=== PATIENT | female | born 1940 | race Caucasian/White ===

== ENCOUNTER 2018-02-21 14:54 | Emergency (ER) | payer MEDICARE, SELFPAY ==
[2018-02-21 14:55] VITALS: BP 193/91; PULSE 60; RESP 16; TEMP 36.2; O2SAT 96; BMI 32.8
--- NOTE | 2018-02-21 15:14 | ED.DCSUM_ITS ---
- ER Visit Summary Date of Service: 02/21/18 Chief Complaint: Fall, rib pain History of Present Illness: The patient is a 77 F with left-sided rib pain. The patient was in her bathroom on Tuesday. She states she is getting up off the toilet. She stepped and lost her balance. She fell between the toilet and the sink. She struck her left ribs. She did not hit her head. She denies loss of consciousness. She states that she has been in her normal state of health since. She has had some pain in her left side with taking a deep breath. She does have pain reaching above her head. She does take oxycodone 1 tablet daily. She states has not really changed her pain. She denies being short of breath. She denies being lightheaded or dizzy. The patient does have some chronic gait dysfunction and walks with a cane. Physical Examination: Vital signs reviewed General: Well-nourished, well-developed Head: Normocephalic, atraumatic Eyes: Pupils equal and reactive, extraocular muscles intact Neck, supple, no lymphadenopathy Heart: Regular rate and rhythm Respiratory: No distress, clear bilaterally, tenderness the left rib laterally at ribs 6 and 7. No step-off. No crepitus. Abdomen: Soft, nontender, nondistended, no peritoneal signs Back: Nontender Extremities: Nontender, no edema, no cords Skin: Normal color no rash Neuro: Alert and oriented, no focal or lateralizing deficits Test Results: [] Emergency Department Course and Treatment: The patient has no hypoxia. She is clear lungs bilaterally. I did obtain plain films. She does have nondisplaced fractures the seventh and eighth rib. There is no pneumothorax. On reevaluation she is resting comfortably. The patient already has analgesics at home. I am going to add lidocaine patches and an incentive spirometer. Family was counseled on concerning symptoms and reasons to return. The patient will be discharged home with strict return precautions. Treatment Plan: [] Disposition: Discharge Impression:. 1;. Closed left rib fractures This note was generated with [employer] software. It may contain incorrect words, spelling, and punctuation that were not noted in review of the chart prior to signing ED Disposition - Plan for ED Patient: Chief Complaint: Fall Instructions: ED Fx Rib Prescriptions: Lidocaine [Lidoderm Patch] 1 patch TOPICAL DAILY #10 patch Referrals: Anthony Cabrera [Primary Care Provider] -
--- NOTE | 2018-02-21 15:20 | RAD_ITS ---
STUDY: X-RAY - UNILATERAL RIBS ( LEFT ) WITH CHEST REASON FOR EXAM: Female, 77 years old. Posterior rib pain following a fall. TECHNIQUE - RIBS: 4 view(s) of the ribs. TECHNIQUE - CHEST: PA and lateral views of the chest. COMPARISON: None. FINDINGS - RIBS: Nondisplaced fracture of the left seventh and eighth ribs anterolaterally. FINDINGS - CHEST: Mild increased markings at the left lung base. Blunting of the left cardiac phrenic angle. There is borderline cardiomegaly. Normal mediastinum and uriel. Normal visualized pulmonary arteries. There is atherosclerotic calcification of the aortic arch with tortuosity. There are diffuse degenerative changes of the visualized thoracic spine. Normal visualized ribs, clavicles, and shoulders. There is no demonstrated abnormality of the visualized soft tissue structures of the upper abdomen. RAD/Ribs Uni Min 3V w/PA Chest IMPRESSION: RIBS: Nondisplaced fractures of the left seventh and eighth ribs anterolaterally. CHEST: Blunting of the left costophrenic angle with mild increased markings at the left lung base. Electronically Signed: Louie Topete MD at 16:02 EDT Tel [phone], Service support ,
[2018-02-21 16:38] VITALS: BP 152/82; PULSE 75; RESP 16; O2SAT 98
== END 2018-02-21 16:39 | disposition home or self-care (01) ==
PROVIDERS: Emergency Provider Emergency Medicine; Family Provider Internal Medicine; PCP Internal Medicine
DX: S22.32XA Fracture of one rib, left side, initial encounter for closed fracture (principal); W01.198A Fall on same level from slipping, tripping and stumbling with subsequent striking against other object, initial encounter; Y93.9 Activity, unspecified; Y92.002 Bathroom of unspecified non-institutional (private) residence as the place of occurrence of the external cause; Y99.9 Unspecified external cause status; E78.00 Pure hypercholesterolemia, unspecified; E11.9 Type 2 diabetes mellitus without complications; I10 Essential (primary) hypertension
CPT/HCPCS: 71101; 99282

== ENCOUNTER 2018-12-11 10:56 | Observation (INO) | payer MEDICARE, SELFPAY ==
[2018-12-11 10:58] VITALS: BP 175/62; PULSE 65; PULSE 66; RESP 18; RESP 20; TEMP 36.4; O2SAT 97; BMI 33.5
--- NOTE | 2018-12-11 11:16 | RAD_ITS ---
STUDY: X-RAY - RIGHT HUMERUS REASON FOR EXAM: Female, 78 years old. Pain following a fall. TECHNIQUE: 4 view(s) of the humerus. COMPARISON: None. FINDINGS: Nondisplaced condylar fracture of the surgical neck of the humerus with extension to the greater tuberosity. Soft tissue swelling. RAD/Humerus min 2 Views IMPRESSION: Nondisplaced comminuted fracture of the surgical neck of the humerus with extension into the greater tuberosity. Electronically Signed: Louie Topete MD at 13:47 EST , Service support ,
--- NOTE | 2018-12-11 11:16 | RAD_ITS ---
STUDY: X-RAY CHEST REASON FOR EXAM: Female, 78 years old. Right-sided pain following a fall. TECHNIQUE: Single AP portable view of the chest. COMPARISON: None. FINDINGS: Elevation of the right hemidiaphragm. Scattered calcified granulomas. There is no demonstrated pleural abnormality. Normal size heart. Normal mediastinum and uriel. Normal visualized pulmonary arteries. There is atherosclerotic calcification of the aortic arch with tortuosity. There are diffuse degenerative changes of the visualized thoracic spine. Nondisplaced, fracture of the surgical neck of the humerus with extension to the greater tuberosity. There is no demonstrated abnormality of the visualized soft tissue structures of the upper abdomen. RAD/Chest 1 View (Portable) IMPRESSION: Mild cardiomegaly. The lungs are clear. Comminuted nondisplaced fracture of the surgical neck of the proximal right humerus with extension to the greater tuberosity. Electronically Signed: Louie Topete MD at 13:51 EST , Service support ,
[2018-12-11] MEDS: Ondansetron 4 MG/2 ML Vial IV (12:49)
[2018-12-11] MEDS: fentaNYL 100 MCG/2 ML Ampul 25 MCG IV ×3 (12:49→17:27)
--- NOTE | 2018-12-11 14:28 | CM.ED ---
Social Work Note Referral from MD for resources. Face to face with the pt and her two daughters. Introduced self and role at [facility]. The pt reports that she lives with her one daughter and fell off the bed today. She does use a walker to ambulate, but with the recently diagnosed broken clavicle do not anticipate she will be able to ambulate with the walker. Family inquires if the pt will be able to get herself out of bed, get to the bathroom, bathe, etc. Inform that this travel writer nor the MD can made that assumption as we do not know how she moves at her baseline. Recommend that we have PT or OT evaluate how the pt is moving to see if she is able to return home or will need placement. Understanding expressed. Updated physician who is in agreement. Order placed for PT to come and evaluate and placed call with no answer. Will attempt to contact therapy via phone again. MELODIE Loepz, [place]
--- NOTE | 2018-12-11 14:33 | CM.ED ---
Social Work Note Call back from Jacinta with PT and explain situation. Someone from therapy to come down to ambulate pt and make recommendation on ability to return home. Jacqueline Levin, ADDING MACHINE OPERATOR, [place]
[2018-12-11 15:03] VITALS: BP 132/93; PULSE 67; RESP 18; O2SAT 96
--- NOTE | 2018-12-11 15:41 | CM.ED ---
Social Work Note Jacinta from PT not recommended pt go home d/t concerns with instability. Discussed with physician who will seek to have pt placed in observation while awaiting pre-cert for placement. Face to face with family who agrees they do not feel they can manager story her care at this time. They opt for placement at TCU. Recommend that they have an alternative option in the event that TCU cannot accept. Also discussed the pre-cert process and understanding expressed. Placed call to referral line and left pt's name for referral. Will await confirmation of bed and SW to continue to follow and assist with discharge planning. PLAN: SNF pending acceptance and pre-cert. Jacqueline Levin, INTERTYPE OPERATOR, [place]
[2018-12-11 17:07] LABS: Absolute Lymphocyte Count 0.81 X10^3/ul (0.83-4.51); Absolute Neutrophil Count 10.4 X10^3/uL (2.0-7.7); Basophil# 0.03 X10^3/uL; Basophil% 0.2 % (0-1); Eosinophil# 0.01 X10^3/uL; Eosinophils% 0.1 % (0-5); Hematocrit 35.8 % (37-47); Lymphocyte # 0.81 X10^3/ul (4.0); Lymphocyte % 6.7 % (19-41); Mean Corp Hgb Conc 30.7 g/gl (32-36); Mean Corpuscular Hgb 30.6 pg (27.0-32.0); Mean Corpuscular Volume 99.7 fL (81-99); Mean Platelet Vol. 12.8 fl (6.2-12.0); Monocyte# 0.86 X10^3/uL; Monocyte% 7.1 % (0-10); Neutrophil # 10.39 X10^3/uL (2.7-7.7); Neutrophil % 85.7 % (47-70); POSITIVE COUNT NO; POSITIVE DIFFERENTIAL NO; POSITIVE MORPHOLOGY NO; Platelet Count 171 K/mm3 (150-450); RBC Distribution Width CV 14.4 % (11.6-14.6); RBC Distribution Width SD 52.5 fl (35.1-43.9); Red Blood Count 3.59 M/mm3 (4.2-5.4); White Blood Count 12.1 K/mm3 (4.4-11.0)
[2018-12-11 17:14] LABS: Anion Gap 7 (5-15); BUN 32 mg/dL (7-18); BUN/Creat Ratio 19.4 RATIO (10-20); Calcium,Total 8.9 mg/dL (8.5-10.1); Chloride 105 mmol/L (98-107); Creatinine, Serum 1.65 mg/dL (0.55-1.02); EST Glomerular Filtration Rate 32 mL/min (>60); Est Glom Filt Rate - Afr Amer 38 mL/min (>60); Estimated Creatinine Clearance 23.48 ml/min; Glucose 334 mg/dL (74-106); Potassium 3.8 mmol/L (3.5-5.1); Sodium Level 141 mmol/L (136-145)
--- NOTE | 2018-12-11 17:25 | ED.VISSUMM ---
- ER Visit Summary Date of Service: 12/11/18 Chief Complaint: Fall History of Present Illness: The patient is a 78 F who fell from the edge of her bed to the floor. She complaining of pain to the right shoulder area. She denies loss of consciousness. Past history significant for dementia, high cholesterol, and kidney disease. She does live with 1 of her daughters. Physical Examination: Vital signs significant for blood pressure 175/62, otherwise unremarkable. Patient is immobilized from transport. Head neck examination reveals no sign of trauma. No C-spine tenderness. Heart is regular rate and rhythm. Lung sounds are clear. Chest wall is nontender. Abdomen is soft and nontender. Lower extremity examination is unremarkable. Left upper extreme examination is normal. Right upper extremity examination reveals tenderness around the right shoulder with no evidence of dislocation. She can wiggle fingers and has a strong distal pulse. There is no tenderness over the forearm or elbow. Test Results: Right humerus and chest x-ray are obtained. There is a comminuted nondisplaced fracture of the surgical neck of the proximal right humerus. Emergency Department Course and Treatment: Patient was given fentanyl for pain. Patient was placed in a sling and swath. Family had concerns about her being able to get up and around at home. I asked social work to evaluate her and she had physical therapy, ambulate the patient. Physical therapy does not feel the patient is safe to be discharged home. Referral has already been made to TCU, but patient will require overnight observation pending insurance approval. CBC and chemistry studies were obtained. White count is 12.1 with a hemoglobin 11.0. Creatinine is 1.65. I do not have prior value for comparison. Treatment Plan: [] Disposition: Admit Impression: 1. Mechanical fall 2. Right proximal humerus fracture This note was generated with [employer] dictation software. It may contain incorrect words, spelling, and punctuation that were not noted in review of the chart prior to signing ED Disposition - Plan for ED Patient: Referrals: Anthony Cabrera [Primary Care Provider] -
--- NOTE | 2018-12-11 18:19 | NURSING ---
DR ARIAS FOR DR MORILLO
--- NOTE | 2018-12-11 18:20 | NURSING ---
MED SURG OBS RT HUMBERUS FX PAINTSIL
--- NOTE | 2018-12-11 18:24 | PCM.HP.STD ---
Problem List (1) Right humeral fracture Status: Acute Qualifiers: Encounter type: initial encounter Fracture type: closed Fracture alignment: nondisplaced (2) Recurrent falls Status: Chronic (3) Dementia Status: Chronic Qualifiers: Dementia type: unspecified type Dementia behavioral disturbance: without behavioral disturbance Qualified Code(s): F03.90 - Unspecified dementia without behavioral disturbance (4) Hyperlipidemia Status: Chronic Qualifiers: Hyperlipidemia type: unspecified Qualified Code(s): E78.5 - Hyperlipidemia, unspecified (5) Type II diabetes mellitus Status: Chronic Qualifiers: Diabetes mellitus termination clerk insulin use: without termination clerk use Diabetes mellitus complication status: with unspecified complications Qualified Code(s): E11.8 - Type 2 diabetes mellitus with unspecified complications (6) Hypertension Status: Chronic Qualifiers: Hypertension type: essential hypertension Qualified Code(s): I10 - Essential (primary) hypertension History of Present Illness Date of Admission: 12/11/18 Chief Complaint: Fall, right upper extremity pain - 1 day The patient is a 78 year old F with past medical history of dementia, hypertension, hyperlipidemia, type II DM, who lives with her daughter at home. Her son and [id number] live next door. History was from the patient's daughter and [id number]. Patient had previously pressed her life alert button. The company called back by the life alert button was in the kitchen. Patient subsequently was found in the bedroom. Patient was found on the floor, unable to get up. She has history of recurrent falls according to the family. They are not able to tell and patient can remember if she had any symptoms prior to falling. Denied any recent illnesses or new medications. Denied any recent complaints. Vitals in the ED show temperature of 97.6F, heart rate was 65, blood pressure 175/62, respiratory rate of 18, SPO2 of 97% on room air. Patient is admitting blood work showed RBC count of 12.1, hemoglobin 11.0, platelet count 171, sodium 141, potassium 3.8, chloride 105, bicarbonate 29, BUN 32, creatinine 1.65, glucose 234. Chest x-ray showed mild cardiomegaly, comminuted nondisplaced fracture of the surgical neck of the proximal right humerus. X-ray of the humerus confirmed nondisplaced condylar fracture of the surgical neck with extension to the greater tuberosity. Past Medical History Past Medical History (Chronic Problems): Chronic Problems Recurrent falls (Chronic) Dementia (Chronic) Hyperlipidemia (Chronic) Type II diabetes mellitus (Chronic) Hypertension (Chronic) Allergies allopurinol Allergy (Verified 12/11/18 10:57) Rash tetanus toxoid, adsorbed Adverse Reaction (Verified 12/11/18 10:57) Nausea Home Medications: Ambulatory Orders Medication Instructions Recorded Amlodipine [Norvasc] 5 mg PO DAILY 02/21/18 Aspirin [Aspirin, Baby] 81 mg PO DAILY@0800 02/21/18 Bupropion HCl [Wellbutrin Sr] 150 mg PO BID 02/21/18 Colchicine 0.6 mg PO BID 02/21/18 Gabapentin [Neurontin] 300 mg PO DAILY 02/21/18 Metoprolol Tartrate [Lopressor] 100 mg PO BID 02/21/18 Sertraline HCl [Zoloft] 75 mg PO DAILY 02/21/18 glyBURIDE [Micronase] 10 mg PO BID 02/21/18 Atorvastatin Calcium [Lipitor] 40 mg PO QHS 12/11/18 Cholecalciferol (VIT D3) [Vitamin 1,000 unit PO DAILY 12/11/18 D] Donepezil HCl 5 mg PO DAILY 12/11/18 Ferrous Sulfate 325 mg PO DAILY 12/11/18 Hydrocodone/Acetaminophen 1 tab PO Q8H PRN PRN 12/11/18 [Hydrocodon-Acetaminophen 5-325] Linagliptin [Tradjenta] 5 mg PO DAILY 12/11/18 Memantine HCl [Memantine HCl ER] 28 mg PO DAILY 12/11/18 Multivitamin with Minerals 1 tab PO DAILY 12/11/18 [Multiple Vitamin] Omeprazole 40 mg PO DAILY 12/11/18 Pioglitazone [Actos] 30 mg PO DAILY 12/11/18 Rivastigmine 9.5mg Patch [Exelon 1 patch TOPICAL DAILY 12/11/18 9.5MG/24HR PATCH] Surgical History: total hip arthroplasty Psychiatric History: Depression ELECTRICAL LINE 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 ELECTRICAL LINE SPLICER history Lives: With Family Smoking Status: Never smoker Tobacco Use: Non-smoker Alcohol: None Drugs: None - *Family History Maternal History Items: No pertinent history Paternal History Items: No pertinent history Review of Systems Constitutional: Denies: Anorexia, Chills, Fever, Weakness, Weight Change Eyes: Denies: Blurred vision, Cataracts, Conjunctivae Inflammation, Pain, Vision Change HEENT: Denies: Difficulty Hearing, Difficulty Swallowing, Head Aches, Sinus Congestion, Sinus Drainage Cardiovascular: Denies: Chest Pain, Claudication, Chest Pressure, Orthopnea, Palpitations, Paroxysmal Noc. Dyspnea Respiratory: Denies: Cough, Shortness of Breath, Shortness of breath at rest, Sputum production Gastrointestinal: Denies: Abdominal Pain, Hematemesis, Hematochezia, Nausea, Vomiting Genitourinary: Denies: Dysuria Musculoskeletal: Reports: Joint Tenderness, Shoulder Pain - right. Denies: Joint Pain, Joint stiffness Skin: Denies: Rash, Wounds Neurological: Denies: Difficulty swallowing, Focal weakness, Numbness, Tingling Psychiatric: Denies: Anxiety, Depression, Homicidal Ideations, Suicidal Ideations Hematologic/ Lymphatic: Denies: Easy Bruising, Easy Bleeding VTE Information - Inpt Only VTE Present on Admission: No VTE Pharm Prophylaxis ordered?: Yes Patient Problems: Active and Suspected Problems Right humeral fracture (Acute) - Physical Exam General: Alert, Cooperative, No apparent distress, - - Oriented to person, place, but not time HEENT: Atraumatic, PERRLA, EOMI, Normocephalic Oral: Dry Mucosa Neck: Supple, No JVD, Negative Carotid Bruits Lungs: Clear to auscultation, Normal air movement Cardiovascular: Regular rate, Regular Rhythm, Normal S1, Normal S2, No murmurs Abdomen: Bowel Sounds Present, Soft, Non Tender, Non-Distended, No Hepato-splenomegaly Extremities: No edema Skin: No rashes, No breakdown Musculoskeletal: Tenderness - Over the right shoulder, right shoulder in a sling Lymphatic: No Cervical, Supraclavicular, or Inguinal Adenopathy Neurological: Cranial nerves II-XII grossly intact, Neuro grossly intact Psych/Mental Status: Normal Affect, Appropriate Vital Signs Temp Pulse Resp BP Pulse Ox 97.6 F L 67 18 132/93 H 96 12/11/18 10:58 12/11/18 15:03 12/11/18 15:03 12/11/18 15:03 12/11/18 15:03 Oxygen Delivery Method Room Air Weight: 88.451 kg Body Mass Index (BMI) 33.5 Laboratory Tests Past 24 Hrs 12/11/18 12/11/18 16:54 16:54 WBC 12.1 H RBC 3.59 L Hgb 11.0 L Hct 35.8 L MCV 99.7 H MCH 30.6 MCHC 30.7 L RDW 14.4 RDW Differential 52.5 H Plt Count 171 MPV 12.8 H Immature Gran % (Auto) 0.200 Neut % (Auto) 85.7 H Lymph % (Auto) 6.7 L [place] % (Auto) 7.1 Eos % (Auto) 0.1 Baso % (Auto) 0.2 Absolute Neuts (auto) 10.4 H Absolute Lymphs (auto) 0.81 L Total Counted Not Reportable Sodium 141 Potassium 3.8 Chloride 105 Carbon Dioxide 29.0 Anion Gap 7 BUN 32 H Creatinine 1.65 H Estim Creat Clear Calc 23.48 Est GFR (MDRD) Af Amer 38 L Est GFR (MDRD) Non-Af 32 L BUN/Creatinine Ratio 19.4 Glucose 334 H Calcium 8.9 Assessment/Plan All Active Problems Right humeral fracture (Acute) 78 year old F with past medical history of dementia, hypertension, hyperlipidemia, type II DM, history of recurrent falls, who lives with her daughter at home and her son and [id number] live next door comes in after a fall extensive right nondisplaced comminuted fracture of the proximal humerus. 1. Acute right nondisplaced comminuted fracture of the proximal humerus, traumatic, status post fall Suspect underlying osteoporosis as children gives history of bilateral hip fractures Plan: Admit to MedSurg floor, pain control, PT and OT to evaluate, orthopedic consult to establish care Family is hoping for discharge to a [facility] facility possibly TCU prior to discharge home; Case management/social work consulted for discharge planning 2. NEENA versus CKD, recent creatinine is 1.65, unknown creatinine in the system, will continue on gentle IV fluids, repeat blood work in a.m. 3. Hypertension, fairly uncontrolled, could be related also to pain, will continue to monitor, continue on home amlodipine 3. Type II DM, on oral hypoglycemic agents- Glyburide, Tradjenta, Actos, will check HbA1c, continue to monitor with Accu-Cheks and insulin sliding scale 4. Hyperlipidemia, on statins 5. Dementia, likely mixed, Alzheimer's and vascular dementia, continue on donepezil, memantine rivastigmine 6. Depression, on Zoloft and Wellbutrin 7. Iron deficiency anemia, on iron pills, hemoglobin is 11 8. DVT prophylaxis with heparin subcu Code Visit OBSV E&M: 87267 Initial observation care L3
[2018-12-11 18:40] VITALS: BP 165/83; PULSE 70; RESP 17; O2SAT 95
[2018-12-11 19:59] VITALS: BMI 32.5
[2018-12-11 20:03] VITALS: BMI 32.6
[2018-12-11 20:11] VITALS: BP 153/66; PULSE 73; RESP 16; TEMP 37; O2SAT 97
[2018-12-11] MEDS: 0.9% Normal Saline 1,000 ML 75 ML IV (20:52)
[2018-12-11] MEDS: Donepezil HCl 5 MG Tablet PO (21:18)
[2018-12-11] MEDS: Rivastigmine 9.5mg Patch 1 PATCH TRANSDERM. (21:19)
[2018-12-11] MEDS: Heparin Injection (Vial) 5,000 UNIT/ML VIAL 5000 UNIT SC (21:21)
[2018-12-11 21:22] VITALS: PULSE 73
[2018-12-11] MEDS: Metoprolol Tartrate 100 MG Tablet PO (21:22)
[2018-12-11] MEDS: Atorvastatin Calcium 40 MG Tablet PO (21:22)
[2018-12-11] MEDS: buPROPion (SR) 150 MG Tablet.SA PO (21:23)
[2018-12-11] MEDS: Memantine Hydrochloride 10 MG Tablet PO (21:23)
[2018-12-11] MEDS: Insulin Lispro 100 UNIT/ML INSULN.PEN SQ (21:32)
[2018-12-11] MEDS: Acetaminophen 500 MG Tablet 1000 MG PO (21:33)
[2018-12-11] MEDS: Glucerna Shake 120 ML LIQUID PO (21:35)
[2018-12-11 21:46] LABS: Hemoglobin A1c 6.7 % (4.2-6.3)
[2018-12-11] MEDS: oxyCODONE 5 MG Tablet PO (23:38)
[2018-12-12] VITALS (7 sets, daily range): BP systolic 140–176; BP diastolic 63–79; PULSE 65–69; RESP 16–20; TEMP 36.7–37.1; O2SAT 93–97
[2018-12-12 00:46] LABS: Bedside Glucose 216 mg/dL (70-110)
[2018-12-12] MEDS: Heparin Injection (Vial) 5,000 UNIT/ML VIAL 5000 UNIT SC ×3 (06:16→21:12)
[2018-12-12] MEDS: oxyCODONE 5 MG Tablet PO (06:16)
[2018-12-12 06:24] LABS: Absolute Lymphocyte Count 1.59 X10^3/ul (0.83-4.51); Absolute Neutrophil Count 7.5 X10^3/uL (2.0-7.7); Basophil# 0.02 X10^3/uL; Basophil% 0.2 % (0-1); Eosinophil# 0.13 X10^3/uL; Eosinophils% 1.2 % (0-5); Hematocrit 33.9 % (37-47); Hemoglobin 10.2 g/dl (12.0-15.0); Lymphocyte # 1.59 X10^3/ul (4.0); Lymphocyte % 14.8 % (19-41); Mean Corp Hgb Conc 30.1 g/gl (32-36); Mean Corpuscular Hgb 30.4 pg (27.0-32.0); Mean Corpuscular Volume 101.2 fL (81-99); Mean Platelet Vol. 12.9 fl (6.2-12.0); Monocyte# 1.46 X10^3/uL; Monocyte% 13.6 % (0-10); Neutrophil # 7.52 X10^3/uL (2.7-7.7); Platelet Count 150 K/mm3 (150-450); RBC Distribution Width CV 14.2 % (11.6-14.6); Red Blood Count 3.35 M/mm3 (4.2-5.4); White Blood Count 10.7 K/mm3 (4.4-11.0)
[2018-12-12 06:31] LABS: POSITIVE COUNT NO; POSITIVE DIFFERENTIAL NO; POSITIVE MORPHOLOGY NO
[2018-12-12 06:44] LABS: Anion Gap 10 (5-15); BUN 34 mg/dL (7-18); BUN/Creat Ratio 23.6 RATIO (10-20); Calcium,Total 8.9 mg/dL (8.5-10.1); Chloride 108 mmol/L (98-107); Creatinine, Serum 1.44 mg/dL (0.55-1.02); EST Glomerular Filtration Rate 37 mL/min (>60); Est Glom Filt Rate - Afr Amer 45 mL/min (>60); Estimated Creatinine Clearance 25.78 ml/min; Glucose 114 mg/dL (74-106); Potassium 3.6 mmol/L (3.5-5.1); Sodium Level 147 mmol/L (136-145)
--- NOTE | 2018-12-12 07:10 | CON.PCM_ITS ---
Reason for Consult Date of Consultation: 12/12/18 Reason for Consultation: right shoulder pain History of Present Illness: The patient is a 78 year old F [who lives at home with daughter and son-in-law next door, fell yesterday. Was brought in through ED and noted to have a nondisplaced right proximal humerus fracture. She was admitted by DR. Black and orthopedic consultation was sought. At the time of my evaluation, she was resting comfortably in the hospital bed and reported only right shoulder pain with motion.. She denied N/T/P or other areas of pain in the axial or appendicular skeleton.] Past Medical History Past Medical History (Chronic Problems): Chronic Problems Recurrent falls (Chronic) Dementia (Chronic) Hyperlipidemia (Chronic) Type II diabetes mellitus (Chronic) Hypertension (Chronic) Allergies allopurinol Allergy (Verified 12/11/18 10:57) Rash tetanus toxoid, adsorbed Adverse Reaction (Verified 12/11/18 10:57) Nausea Home Medications: Ambulatory Orders Medication Instructions Recorded Amlodipine [Norvasc] 5 mg PO DAILY 02/21/18 Aspirin [Aspirin, Baby] 81 mg PO DAILY@0800 02/21/18 Bupropion HCl [Wellbutrin Sr] 150 mg PO BID 02/21/18 Colchicine 0.6 mg PO BID 02/21/18 Gabapentin [Neurontin] 300 mg PO DAILY 02/21/18 Metoprolol Tartrate [Lopressor] 100 mg PO BID 02/21/18 Sertraline HCl [Zoloft] 75 mg PO DAILY 02/21/18 glyBURIDE [Micronase] 10 mg PO BID 02/21/18 Atorvastatin Calcium [Lipitor] 40 mg PO QHS 12/11/18 Cholecalciferol (VIT D3) [Vitamin 1,000 unit PO DAILY 12/11/18 D] Donepezil HCl 5 mg PO DAILY 12/11/18 Ferrous Sulfate 325 mg PO DAILY 12/11/18 Hydrocodone/Acetaminophen 1 tab PO Q8H PRN PRN 12/11/18 [Hydrocodon-Acetaminophen 5-325] Linagliptin [Tradjenta] 5 mg PO DAILY 12/11/18 Memantine HCl [Memantine HCl ER] 28 mg PO DAILY 12/11/18 Multivitamin with Minerals 1 tab PO DAILY 12/11/18 [Multiple Vitamin] Omeprazole 40 mg PO DAILY 12/11/18 Pioglitazone [Actos] 30 mg PO DAILY 12/11/18 Rivastigmine 9.5mg Patch [Exelon 1 patch TOPICAL DAILY 12/11/18 9.5MG/24HR PATCH] Surgical History: total hip arthroplasty Psychiatric History: Depression 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 Lives: With Family Smoking Status: Never smoker Tobacco Use: Non-smoker Alcohol: None Drugs: None - *Family History Maternal History Items: No pertinent history Paternal History Items: No pertinent history Patient Problems: Active and Suspected Problems Right humeral fracture (Acute) - Physical Exam General: Alert, No apparent distress - Pleasantly demented, answers questions regarding her physical status appropriately HEENT: Atraumatic, Normocephalic Neck: Supple Lungs: Clear to auscultation Extremities: Tenderness - Right shoulder with motion Skin: No rashes, No breakdown Neurological: Neuro grossly intact Comment: Xrays reveal a nondisplaced surgical neck fx of the humerus Vital Signs Temp Pulse Resp BP Pulse Ox 98.7 F 67 18 176/76 H 93 12/12/18 02:29 12/12/18 02:29 12/12/18 02:29 12/12/18 02:29 12/12/18 02:29 Oxygen Delivery Method Room Air Weight: 183 lb 13.848 oz Body Mass Index (BMI) 32.5 Intake and Output for Last 24 Hours 12/10/18 12/11/18 12/12/18 23:59 23:59 23:59 Intake Total 586 / 586 740 / 740 Output Total 200 / 200 Balance 386 / 386 740 / 740 Laboratory Tests Past 24 Hrs 12/11/18 12/11/18 12/11/18 16:54 16:54 16:54 WBC 12.1 H RBC 3.59 L Hgb 11.0 L Hct 35.8 L MCV 99.7 H MCH 30.6 MCHC 30.7 L RDW 14.4 RDW Differential 52.5 H Plt Count 171 MPV 12.8 H Immature Gran % (Auto) 0.200 Neut % (Auto) 85.7 H Lymph % (Auto) 6.7 L [place] % (Auto) 7.1 Eos % (Auto) 0.1 Baso % (Auto) 0.2 Absolute Neuts (auto) 10.4 H Absolute Lymphs (auto) 0.81 L Total Counted Not Reportable Sodium 141 Potassium 3.8 Chloride 105 Carbon Dioxide 29.0 Anion Gap 7 BUN 32 H Creatinine 1.65 H Estim Creat Clear Calc 23.48 Est GFR (MDRD) Af Amer 38 L Est GFR (MDRD) Non-Af 32 L BUN/Creatinine Ratio 19.4 Glucose 334 H Hemoglobin A1c 6.7 H Calcium 8.9 Vit D 1,25-Dihydroxy 12/12/18 12/12/18 12/12/18 05:58 05:58 06:00 WBC 10.7 RBC 3.35 L Hgb 10.2 L Hct 33.9 L MCV 101.2 H MCH 30.4 MCHC 30.1 L RDW 14.2 RDW Differential 51.0 H Plt Count 150 MPV 12.9 H Immature Gran % (Auto) 0.200 Neut % (Auto) 70.0 Lymph % (Auto) 14.8 L [place] % (Auto) 13.6 H Eos % (Auto) 1.2 Baso % (Auto) 0.2 Absolute Neuts (auto) 7.5 Absolute Lymphs (auto) 1.59 Total Counted Not Reportable Sodium 147 H Potassium 3.6 Chloride 108 H Carbon Dioxide 29.0 Anion Gap 10 BUN 34 H Creatinine 1.44 H Estim Creat Clear Calc 25.78 Est GFR (MDRD) Af Amer 45 L Est GFR (MDRD) Non-Af 37 L BUN/Creatinine Ratio 23.6 H Glucose 114 H Hemoglobin A1c Calcium 8.9 Vit D 1,25-Dihydroxy Pending POC Glucose 12/11/18 21:31 POC Glucose 216 H Assessment/Plan All Active Problems Right humeral fracture (Acute) Nondisplaced surgical neck fracture right humerus Continue sling No weight bearing or lifting with right arm Will follow in office approximately 10 days post discharge
[2018-12-12 07:11] LABS: Bedside Glucose 98 mg/dL (70-110)
[2018-12-12] MEDS: Ferrous Sulfate 325 MG Tablet PO (07:44)
[2018-12-12] MEDS: Multivitamins,Therapeutic Tablet 1 TABLET PO (07:45)
[2018-12-12] MEDS: Aspirin 81 MG TAB.CHEW PO (07:45)
[2018-12-12] MEDS: Pioglitazone Hydrochloride 30 MG Tablet PO (07:45)
[2018-12-12] MEDS: Rivastigmine 9.5mg Patch 1 PATCH TRANSDERM. (07:46)
[2018-12-12] MEDS: Metoprolol Tartrate 100 MG Tablet PO ×2 (07:48→21:12)
[2018-12-12] MEDS: Memantine Hydrochloride 10 MG Tablet PO ×2 (07:49→21:11)
[2018-12-12] MEDS: amLODIPine 5 MG Tablet PO (07:49)
[2018-12-12] MEDS: Pantoprazole Sodium 40 MG Tablet PO (07:49)
[2018-12-12] MEDS: Gabapentin 300 MG Capsule PO (07:49)
[2018-12-12] MEDS: LINAGLIPTIN 5 MG TABLET PO (07:50)
[2018-12-12] MEDS: Sertraline 50 MG Tablet 75 MG PO (07:50)
[2018-12-12] MEDS: buPROPion (SR) 150 MG Tablet.SA PO ×2 (07:50→21:11)
[2018-12-12] MEDS: Glucerna Shake 120 ML LIQUID PO ×4 (07:59→21:11)
--- NOTE | 2018-12-12 10:30 | PCM.PN.HOSP ---
Patient Problems: Active and Suspected Problems Right humeral fracture (Acute) Subjective: Pain is controlled with oxycodone. She otherwise is doing okay. Denies any fevers or chills. No chest pain or shortness of breath. Vitals/I&O's: Vital Signs Temp Pulse Resp BP Pulse Ox 98.5 F 68 16 175/77 H 97 12/12/18 08:02 12/12/18 08:02 12/12/18 08:02 12/12/18 08:02 12/12/18 08:02 Oxygen Delivery Method Room Air Weight: 183 lb 13.848 oz Body Mass Index (BMI) 32.5 Intake and Output for Last 24 Hours 12/10/18 12/11/18 12/12/18 23:59 23:59 23:59 Intake Total 586 / 586 740 / 740 Output Total 200 / 200 275 / 275 Balance 386 / 386 465 / 465 General: Alert, Cooperative, No apparent distress, - - Oriented to person and place not time HEENT: Atraumatic, PERRLA, EOMI, Normocephalic Oral: Moist Mucosa Neck: Supple, No JVD, Trachea Midline Lungs: Clear to auscultation, Normal air movement, No rhonchi, No wheeze, No rales, Diminished Cardiovascular: Regular rate, Regular Rhythm, Normal S1, Normal S2, No murmurs Abdomen: Soft, Non Tender, Non-Distended, No Hepato-splenomegaly Extremities: No edema, Capillary Refill Less than 3 Seconds Skin: No rashes, No breakdown Musculoskeletal: Tenderness - Right shoulder Neurological: Neuro grossly intact, Sensory exam intact to light touch and pain Psych/Mental Status: Normal Affect, Appropriate Laboratory Results 12/11/18 16:54: WBC 12.1 H, RBC 3.59 L, Hgb 11.0 L, Hct 35.8 L, MCV 99.7 H, MCH 30.6, MCHC 30.7 L, RDW 14.4, RDW Differential 52.5 H, Plt Count 171, MPV 12.8 H, Immature Gran % (Auto) 0.200, Neut % (Auto) 85.7 H, Lymph % (Auto) 6.7 L, Houghton % (Auto) 7.1, Eos % (Auto) 0.1, Baso % (Auto) 0.2, Absolute Neuts (auto) 10.4 H, Absolute Lymphs (auto) 0.81 L, Total Counted Not Reportable 12/11/18 16:54: Sodium 141, Potassium 3.8, Chloride 105, Carbon Dioxide 29.0, Anion Gap 7, BUN 32 H, Creatinine 1.65 H, Estim Creat Clear Calc 23.48, Est GFR (MDRD) Af Amer 38 L, Est GFR (MDRD) Non-Af 32 L, BUN/Creatinine Ratio 19.4, Glucose 334 H, Calcium 8.9 12/11/18 16:54: Hemoglobin A1c 6.7 H 12/11/18 21:31: POC Glucose 216 H 12/12/18 05:58: WBC 10.7, RBC 3.35 L, Hgb 10.2 L, Hct 33.9 L, MCV 101.2 H, MCH 30.4, MCHC 30.1 L, RDW 14.2, RDW Differential 51.0 H, Plt Count 150, MPV 12.9 H, Immature Gran % (Auto) 0.200, Neut % (Auto) 70.0, Lymph % (Auto) 14.8 L, Houghton % (Auto) 13.6 H, Eos % (Auto) 1.2, Baso % (Auto) 0.2, Absolute Neuts (auto) 7.5, Absolute Lymphs (auto) 1.59, Total Counted Not Reportable 12/12/18 05:58: Sodium 147 H, Potassium 3.6, Chloride 108 H, Carbon Dioxide 29.0, Anion Gap 10, BUN 34 H, Creatinine 1.44 H, Estim Creat Clear Calc 25.78, Est GFR (MDRD) Af Amer 45 L, Est GFR (MDRD) Non-Af 37 L, BUN/Creatinine Ratio 23.6 H, Glucose 114 H, Calcium 8.9 12/12/18 06:00: Vit D 1,25-Dihydroxy Pending 12/12/18 06:50: POC Glucose 98 Current Medications Acetaminophen (Tylenol) 1,000 mg PO Q8 [facility] Last Admin: 12/12/18 06:16 Dose: Not Given Amlodipine Besylate (Norvasc) 5 mg PO DAILY [facility] Last Admin: 12/12/18 07:49 Dose: 5 mg Aspirin (Aspirin, Baby) 81 mg PO DAILY@0800 [facility] Last Admin: 12/12/18 07:45 Dose: 81 mg Atorvastatin Calcium (Lipitor) 40 mg PO QHS [facility] Last Admin: 12/11/18 21:22 Dose: 40 mg Bisacodyl (Dulcolax) 5 mg PO DAILY PRN PRN PRN Reason: Constipation Bupropion HCl (Wellbutrin Sr (150mg Tablets)) 150 mg PO BID [facility] Last Admin: 12/12/18 07:50 Dose: 150 mg Cholecalciferol (Vitamin D) 1,000 unit PO DAILY [facility] Last Admin: 12/12/18 07:50 Dose: 1,000 unit Colchicine (Colchicine) 0.6 mg PO BID [facility] Last Admin: 12/12/18 07:46 Dose: 0.6 mg Dextrose (D50w Syringe) 0 gm IV X1 PRN; Protocol PRN Reason: Hypoglycemia Donepezil HCl (Aricept) 5 mg PO QHS [facility] Last Admin: 12/11/18 21:18 Dose: 5 mg Ferrous Sulfate (Ferrous Sulfate) 325 mg PO DAILY@0800 [facility] Last Admin: 12/12/18 07:44 Dose: 325 mg Gabapentin (Neurontin) 300 mg PO DAILY [facility] Last Admin: 12/12/18 07:49 Dose: 300 mg Glucagon () 1 mg IM .X1 PRN PRN Reason: Hypoglycemia [facility] ([facility]) [facility] Last Admin: 12/12/18 07:45 Dose: 10 mg Heparin Sodium (Porcine) (Heparin Na) 5,000 unit SC Q8 [facility] Last Admin: 12/12/18 06:16 Dose: 5,000 unit Insulin Human Lispro (Humalog Kwikpen (Bkc)) 0 unit SQ ACHS [facility]; Protocol Last Admin: 12/12/18 06:52 Dose: Not Given Linagliptin (Tradjenta) 5 mg PO DAILY [facility] Last Admin: 12/12/18 07:50 Dose: 5 mg Magnesium Hydroxide (Milk Of Magnesia) 30 ml PO DAILY PRN PRN PRN Reason: Constipation Memantine (Namenda) 10 mg PO BID [facility] Last Admin: 12/12/18 07:49 Dose: 10 mg Metoprolol Tartrate (Lopressor (Beta Fabien)) 100 mg PO BID [facility] Last Admin: 12/12/18 07:48 Dose: 100 mg Multivitamins (Multivitamin) 1 tablet PO DAILY@0800 [facility] Last Admin: 12/12/18 07:45 Dose: 1 tablet Nutritional Formula (Lactose Free) (Glucerna Shake) 120 ml PO 4X/DAY [facility] Last Admin: 12/12/18 07:59 Dose: 120 ml Ondansetron HCl (Zofran) 4 mg IV Q8H PRN PRN PRN Reason: NAUSEA Oxycodone HCl (Oxyir) 5 mg PO Q4H PRN PRN PRN Reason: SEVERE PAIN (6-10/10) Last Admin: 12/12/18 06:16 Dose: 5 mg Pantoprazole Sodium (Protonix) 40 mg PO DAILY [facility] Last Admin: 12/12/18 07:49 Dose: 40 mg Pioglitazone HCl (Actos) 30 mg PO DAILY [facility] Last Admin: 12/12/18 07:45 Dose: 30 mg Psyllium Hydrophilic Mucilloid (Metamucil) 1 packet PO DAILY PRN PRN PRN Reason: CONSTIPATION Rivastigmine (Exelon 9.5mg/24hr Patch) 1 patch TRANSDERM. DAILY [facility] Last Admin: 12/12/18 07:46 Dose: 1 patch Sertraline HCl (Zoloft) 75 mg PO DAILY [facility] Last Admin: 12/12/18 07:50 Dose: 75 mg Sodium Chloride () 5 - 15 ml IV UD PRN PRN Reason: SALINE FLUSH Medical Necessity - Tobacco Use Smoking Status: Never smoker Tobacco Use: Non-smoker Assessment/Plan All Active Problems Right humeral fracture (Acute) 1. An acute right nondisplaced comminuted fracture of the proximal humerus status post fall -Consult orthopedic surgery -Injury is nonoperative and she will remain in sling -Follow-up with orthopedics in 10 days outpatient -She lives with her daughter and her son and [id number] live next door -Ambulatory with a walker at home which she is unable to use the broken arm, and OT evaluated this morning PT is still pending. OT felt that she would need a prison facility at discharge 2. Acute kidney injury/HTN/HLD -Unsure what her baseline creatinine is to be able to say chronic kidney disease -On admission creatinine was 1.65 and she was on IV fluids and today is 1.44 -Continue with home Norvasc, metoprolol -Continue with Lipitor 3. DM 2 -Continue with her Tradjenta, Actos and her glyburide -Siding scale insulin 4. Dementia -Stable -Continue with donepezil, memantine, and rivastigmine 5. Iron deficiency anemia -Hemoglobin stable -With iron replacement DVT: Heparin Code Visit OBSV E&M: 26397 Subsequent observation care L2
--- NOTE | 2018-12-12 10:45 | PN_ITS ---
Patient Problems: Active and Suspected Problems Right humeral fracture (Acute) Subjective: Pain is controlled with oxycodone. She otherwise is doing okay. Denies any fevers or chills. No chest pain or shortness of breath. Vitals/I&O's: Vital Signs Temp Pulse Resp BP Pulse Ox 98.5 F 68 16 175/77 H 97 12/12/18 08:02 12/12/18 08:02 12/12/18 08:02 12/12/18 08:02 12/12/18 08:02 Oxygen Delivery Method Room Air Weight: 183 lb 13.848 oz Body Mass Index (BMI) 32.5 Intake and Output for Last 24 Hours 12/10/18 12/11/18 12/12/18 23:59 23:59 23:59 Intake Total 586 / 586 740 / 740 Output Total 200 / 200 275 / 275 Balance 386 / 386 465 / 465 General: Alert, Cooperative, No apparent distress, - - Oriented to person and place not time HEENT: Atraumatic, PERRLA, EOMI, Normocephalic Oral: Moist Mucosa Neck: Supple, No JVD, Trachea Midline Lungs: Clear to auscultation, Normal air movement, No rhonchi, No wheeze, No rales, Diminished Cardiovascular: Regular rate, Regular Rhythm, Normal S1, Normal S2, No murmurs Abdomen: Soft, Non Tender, Non-Distended, No Hepato-splenomegaly Extremities: No edema, Capillary Refill Less than 3 Seconds Skin: No rashes, No breakdown Musculoskeletal: Tenderness - Right shoulder Neurological: Neuro grossly intact, Sensory exam intact to light touch and pain Psych/Mental Status: Normal Affect, Appropriate Laboratory Results 12/11/18 16:54: WBC 12.1 H, RBC 3.59 L, Hgb 11.0 L, Hct 35.8 L, MCV 99.7 H, MCH 30.6, MCHC 30.7 L, RDW 14.4, RDW Differential 52.5 H, Plt Count 171, MPV 12.8 H, Immature Gran % (Auto) 0.200, Neut % (Auto) 85.7 H, Lymph % (Auto) 6.7 L, Holt % (Auto) 7.1, Eos % (Auto) 0.1, Baso % (Auto) 0.2, Absolute Neuts (auto) 10.4 H, Absolute Lymphs (auto) 0.81 L, Total Counted Not Reportable 12/11/18 16:54: Sodium 141, Potassium 3.8, Chloride 105, Carbon Dioxide 29.0, Anion Gap 7, BUN 32 H, Creatinine 1.65 H, Estim Creat Clear Calc 23.48, Est GFR (MDRD) Af Amer 38 L, Est GFR (MDRD) Non-Af 32 L, BUN/Creatinine Ratio 19.4, Glucose 334 H, Calcium 8.9 12/11/18 16:54: Hemoglobin A1c 6.7 H 12/11/18 21:31: POC Glucose 216 H 12/12/18 05:58: WBC 10.7, RBC 3.35 L, Hgb 10.2 L, Hct 33.9 L, MCV 101.2 H, MCH 30.4, MCHC 30.1 L, RDW 14.2, RDW Differential 51.0 H, Plt Count 150, MPV 12.9 H, Immature Gran % (Auto) 0.200, Neut % (Auto) 70.0, Lymph % (Auto) 14.8 L, Holt % (Auto) 13.6 H, Eos % (Auto) 1.2, Baso % (Auto) 0.2, Absolute Neuts (auto) 7.5, Absolute Lymphs (auto) 1.59, Total Counted Not Reportable 12/12/18 05:58: Sodium 147 H, Potassium 3.6, Chloride 108 H, Carbon Dioxide 29.0, Anion Gap 10, BUN 34 H, Creatinine 1.44 H, Estim Creat Clear Calc 25.78, Est GFR (MDRD) Af Amer 45 L, Est GFR (MDRD) Non-Af 37 L, BUN/Creatinine Ratio 23.6 H, Glucose 114 H, Calcium 8.9 12/12/18 06:00: Vit D 1,25-Dihydroxy Pending 12/12/18 06:50: POC Glucose 98 Current Medications Acetaminophen (Tylenol) 1,000 mg PO Q8 [facility] Last Admin: 12/12/18 06:16 Dose: Not Given Amlodipine Besylate (Norvasc) 5 mg PO DAILY [facility] Last Admin: 12/12/18 07:49 Dose: 5 mg Aspirin (Aspirin, Baby) 81 mg PO DAILY@0800 [facility] Last Admin: 12/12/18 07:45 Dose: 81 mg Atorvastatin Calcium (Lipitor) 40 mg PO QHS [facility] Last Admin: 12/11/18 21:22 Dose: 40 mg Bisacodyl (Dulcolax) 5 mg PO DAILY PRN PRN PRN Reason: Constipation Bupropion HCl (Wellbutrin Sr (150mg Tablets)) 150 mg PO BID [facility] Last Admin: 12/12/18 07:50 Dose: 150 mg Cholecalciferol (Vitamin D) 1,000 unit PO DAILY [facility] Last Admin: 12/12/18 07:50 Dose: 1,000 unit Colchicine (Colchicine) 0.6 mg PO BID [facility] Last Admin: 12/12/18 07:46 Dose: 0.6 mg Dextrose (D50w Syringe) 0 gm IV X1 PRN; Protocol PRN Reason: Hypoglycemia Donepezil HCl (Aricept) 5 mg PO QHS [facility] Last Admin: 12/11/18 21:18 Dose: 5 mg Ferrous Sulfate (Ferrous Sulfate) 325 mg PO DAILY@0800 [facility] Last Admin: 12/12/18 07:44 Dose: 325 mg Gabapentin (Neurontin) 300 mg PO DAILY [facility] Last Admin: 12/12/18 07:49 Dose: 300 mg Glucagon () 1 mg IM .X1 PRN PRN Reason: Hypoglycemia [facility]) [facility] Last Admin: 12/12/18 07:45 Dose: 10 mg Heparin Sodium (Porcine) (Heparin Na) 5,000 unit SC Q8 [facility] Last Admin: 12/12/18 06:16 Dose: 5,000 unit Insulin Human Lispro (Humalog Kwikpen (Bkc)) 0 unit SQ ACHS [facility]; Protocol Last Admin: 12/12/18 06:52 Dose: Not Given Linagliptin (Tradjenta) 5 mg PO DAILY [facility] Last Admin: 12/12/18 07:50 Dose: 5 mg Magnesium Hydroxide (Milk Of Magnesia) 30 ml PO DAILY PRN PRN PRN Reason: Constipation Memantine (Namenda) 10 mg PO BID [facility] Last Admin: 12/12/18 07:49 Dose: 10 mg Metoprolol Tartrate (Lopressor (Beta Fabien)) 100 mg PO BID [facility] Last Admin: 12/12/18 07:48 Dose: 100 mg Multivitamins (Multivitamin) 1 tablet PO DAILY@0800 [facility] Last Admin: 12/12/18 07:45 Dose: 1 tablet Nutritional Formula (Lactose Free) (Glucerna Shake) 120 ml PO 4X/DAY [facility] Last Admin: 12/12/18 07:59 Dose: 120 ml Ondansetron HCl (Zofran) 4 mg IV Q8H PRN PRN PRN Reason: NAUSEA Oxycodone HCl (Oxyir) 5 mg PO Q4H PRN PRN PRN Reason: SEVERE PAIN (6-10/10) Last Admin: 12/12/18 06:16 Dose: 5 mg Pantoprazole Sodium (Protonix) 40 mg PO DAILY [facility] Last Admin: 12/12/18 07:49 Dose: 40 mg Pioglitazone HCl (Actos) 30 mg PO DAILY [facility] Last Admin: 12/12/18 07:45 Dose: 30 mg Psyllium Hydrophilic Mucilloid (Metamucil) 1 packet PO DAILY PRN PRN PRN Reason: CONSTIPATION Rivastigmine (Exelon 9.5mg/24hr Patch) 1 patch TRANSDERM. DAILY [facility] Last Admin: 12/12/18 07:46 Dose: 1 patch Sertraline HCl (Zoloft) 75 mg PO DAILY [facility] Last Admin: 12/12/18 07:50 Dose: 75 mg Sodium Chloride () 5 - 15 ml IV UD PRN PRN Reason: SALINE FLUSH Medical Necessity - Tobacco Use Smoking Status: Never smoker Tobacco Use: Non-smoker Assessment/Plan All Active Problems Right humeral fracture (Acute) 1. An acute right nondisplaced comminuted fracture of the proximal humerus status post fall -Consult orthopedic surgery -Injury is nonoperative and she will remain in sling -Follow-up with orthopedics in 10 days outpatient -She lives with her daughter and her son and [id number] live next door -Ambulatory with a walker at home which she is unable to use the broken arm, and OT evaluated this morning PT is still pending. OT felt that she would need a penitentiary facility at discharge 2. Acute kidney injury/HTN/HLD -Unsure what her baseline creatinine is to be able to say chronic kidney disease -On admission creatinine was 1.65 and she was on IV fluids and today is 1.44 -Continue with home Norvasc, metoprolol -Continue with Lipitor 3. DM 2 -Continue with her Tradjenta, Actos and her glyburide -Siding scale insulin 4. Dementia -Stable -Continue with donepezil, memantine, and rivastigmine 5. Iron deficiency anemia -Hemoglobin stable -With iron replacement DVT: Heparin Code Visit OBSV E&M: 89517 Subsequent observation care L2
--- NOTE | 2018-12-12 11:01 | CASEMGMT ---
Social Work Note SWEETIE received call from pt's daughter in law Linda ([phone]) and asked about the process of getting pt to TCU today. SWEETIE explained that this worker will have to check on bed availability on TCU and pt would need pre-cert. SWEETIE encouraged Linda to have additional options for SNF in the event TCU doesn't have any beds. SW informed Linda that this worker will update her once this worker knows more information. SW reviewed previous notes that state referral was made to TCU. Pt does have a diagnosis of Dementia and per handoff communication pt did have confusion overnight. SW met with pt to confirm discharge plans. Pt is alert but does note some confusion and flight of ideas. Pt states that she wishes to discharge home. SW asked pt if there was family at home that is able to help and pt states she lives with her daughter Jacinta and her boyfriend and they would be able to help. Pt states that she has had recent falls at home. Pt adamant that she feels she is able to discharge home with [facility]. SWEETIE informed pt that this worker will check with pt's family to determine appropriate discharge plans. Pt states that her daughter Jacinta should be in today. SW asked pt about advanced directives. Pt states she thinks she has completed HCPOA and she would have to check with her daughter Elvia. Pt states she has completed Living Will. SWEETIE received message from Linda pt's daughter in law stating she would prefer for pt to go to [facility] as pt has been there before and due to pt's confusion, it may be a better place for pt. SWEETIE explained that pt was adamant that she returns home at discharge and Linda states that is not an option. Linda states that pt lives with her mentally handicapped daughter who is unable to assist at home. SWEETIE explained that this worker will have to check with [facility] to determine if bed is available. Linda states she has already spoken to Gricelda in admissions. SWEETIE explained that this worker will still have to call and make a referral. Linda states understanding. SWEETIE placed a call to [facility] and spoke with Gricelda in admissions. Per Gricelda she does have beds available and does accept pt's insurance. Gricelda provided fax number [phone]. SWEETIE placed a call to pt's daughter Elvia as she is listed on pt's demographics and per fee clerk questions is pt's HCPOA. Elvia states that she would prefer for pt to stay at TCU at [facility]. SW explained that this worker is still waiting to determine if TCU has any beds available. Elvia confirms that her first choice is for pt to go to TCU and asked who mentioned [facility]. SWEETIE explained that Linda, pt's daughter in law had called this worker and mentioned [facility] for pt. SW explained to Elvia that once this worker hears from [facility] TCU about bed availability this worker will give her a call. SW explained that pre-cert will be needed. Elvia states that she is currently at work until 4:00pm and won't be available 2:15pm-3:15pm. SWEETIE placed a call to Katelynn in TCU. Per Katelynn she didn't receive referral yet for pt but will check on bed availability and give this worker a call back. Plan: TCU pending acceptance and pre-cert Evelyn Sosa COMMERCIAL CONSTRUCTION ESTIMATOR, KARATE BL[employer]T
[2018-12-12 11:21] LABS: Bedside Glucose 307 mg/dL (70-110)
[2018-12-12] MEDS: Insulin Lispro 100 UNIT/ML INSULN.PEN SQ ×3 (12:26→21:12)
--- NOTE | 2018-12-12 14:00 | CASEMGMT ---
Social Work Note SW received call from Katelynn in TCU stating she is able to accept pt and will submit for pre-cert. SWEETIE placed a call to pt's daughter Elvia and updated her on pt's acceptance to TCU pending pre-cert. SWEETIE received call from Elvia stating her brother's Brijesh and Sam are working with pt to get her discharged to SNF and are wanting pt to go to [facility] at discharge. Elvia states that Brijesh, who is currently in [place], is HCPOA. Elvia agreeable to pt going to [facility]. Elvia provided Brijesh's number [phone] and Sam's number [phone]. SW met with pt and pt's daughter in law Linda present in room. Pt gave this worker permission to speak to her in front of her guest. Linda confirms that pt's son Brijesh is HCPOA and is currently in [place] for work. Linda states she is to pt's son Sam. Linda states that she has been in contact with Brijesh and Sam and Brijesh's Linda and all are agreeable to pt going to [facility] at discharge. SWEETIE explained to Linda that referral had been made to [facility] and that they are able to accept pt pending pre-cert. Linda provided pt's son Brijesh's number [phone] and provided Brijesh's Linda's number [phone]. Linad states she would like updated when updates are available. SWEETIE placed a call to pt's son Brijesh. Brijesh states he is agreeable to pt going to [facility] at discharge. SWEETIE explained referral process and that pt will need pre-cert. Brijesh states understanding. SWEETIE placed a call to Katelynn in TCU stating pt's family would like pt to go to [facility] and to cancel pre-cert. Plan: [facility] pending pre-cert Evelyn Sosa LOGISTICS/SHIPPER, LAW ENFORCEMENT OFFICER
[2018-12-12] MEDS: Acetaminophen 500 MG Tablet 1000 MG PO ×2 (14:27→21:11)
--- NOTE | 2018-12-12 15:44 | CASEMGMT ---
Social Work Note SWEETIE placed a call to Gricelda at [facility]. Gricelda confirms that she received referral, is able to accept pt and submitted for pre-cert. Gricelda states she hasn't heard anything back yet regarding pre-cert but is thinking she will definitely hear tomorrow. Gricelda states she would like transportation to be arranged in the afternoon tomorrow. SWEETIE to continue to follow along to assist with discharge planning. Plan: [facility] pending pre-cert Evelyn Sosa STAIN DIPPER, MANAGEMENT ADVISOR
[2018-12-12 16:21] LABS: Bedside Glucose 188 mg/dL (70-110)
[2018-12-12] MEDS: Donepezil HCl 5 MG Tablet PO (21:11)
[2018-12-12] MEDS: Atorvastatin Calcium 40 MG Tablet PO (21:11)
[2018-12-12 22:31] LABS: Bedside Glucose 187 mg/dL (70-110)
[2018-12-13 03:27] VITALS: BP 159/73; PULSE 66; RESP 18; TEMP 36.8; O2SAT 99
[2018-12-13] MEDS: Acetaminophen 500 MG Tablet 1000 MG PO ×2 (05:14→15:22)
[2018-12-13 06:04] LABS: Absolute Lymphocyte Count 1.75 X10^3/ul (0.83-4.51); Absolute Neutrophil Count 7.9 X10^3/uL (2.0-7.7); Basophil# 0.03 X10^3/uL; Basophil% 0.3 % (0-1); Eosinophil# 0.22 X10^3/uL; Hematocrit 33.2 % (37-47); Hemoglobin 10.2 g/dl (12.0-15.0); Lymphocyte # 1.75 X10^3/ul (4.0); Lymphocyte % 15.8 % (19-41); Mean Corp Hgb Conc 30.7 g/gl (32-36); Mean Corpuscular Hgb 30.5 pg (27.0-32.0); Mean Corpuscular Volume 99.4 fL (81-99); Mean Platelet Vol. 13.2 fl (6.2-12.0); Monocyte# 1.08 X10^3/uL; Monocyte% 9.8 % (0-10); Neutrophil # 7.94 X10^3/uL (2.7-7.7); Neutrophil % 71.8 % (47-70); Platelet Count 151 K/mm3 (150-450); RBC Distribution Width CV 14.6 % (11.6-14.6); RBC Distribution Width SD 53.2 fl (35.1-43.9); Red Blood Count 3.34 M/mm3 (4.2-5.4); White Blood Count 11.1 K/mm3 (4.4-11.0)
[2018-12-13 06:05] LABS: POSITIVE COUNT NO; POSITIVE DIFFERENTIAL NO; POSITIVE MORPHOLOGY NO
[2018-12-13] MEDS: Insulin Lispro 100 UNIT/ML INSULN.PEN SQ ×2 (06:36→12:22)
[2018-12-13 06:51] LABS: Bedside Glucose 195 mg/dL (70-110)
--- NOTE | 2018-12-13 09:38 | CASEMGMT ---
Addendum entered by Miriam Dumont 12/13/18 09:44: Copy of [employer] form made. Original given to pt/placed in paperwork packet to send with pt, and copy placed on pt's chart. Original Note: LINDSAY WAGONER NOTE: Call placed to pt's son, Brijesh/CELENA. Reviewed [employer] form. Brijesh denies having any questions at this time. Brijesh was also notified that we are still waiting on Pre-cert for pt to got to [facility]. Brijesh thanked LINDSAY WAGONER for calling and stated to keep him updated, stating it is okay to leave him a message on his VM if he does not answer. Belen PITT, made aware. Preston SESAY RN, CM
--- NOTE | 2018-12-13 09:39 | PCM.TXEXTCAR ---
- Diet 12/11/18 19:34 Diet: Regular Diet Food consistency:: Regular Liquid Consistency:: Regular/Thin - Wound(s) right 2nd toe Wound Type: Skin Tear right knee Wound Type: Abrasion - Allergies/Procedures Done in Hospital Allergies/Adverse Reactions: Allergies allopurinol Allergy (Verified 12/11/18 10:57) Rash tetanus toxoid, adsorbed Adverse Reaction (Verified 12/11/18 10:57) Nausea - Type of Care/Length of Stay Estimated LOS: Convalescent Care Less Than 30 days Type of Care Needed: Skilled Rehab Potential: Good Prognosis: Good - Additional Orders/Day of Discharge Day of Discharge: 12/13/18 - Dietary and Speech Recommendations Dietitian Recommendations/Changes: Continue regular diet and Glucerna ONS 4x/day. - Follow Up Care Primary Care Physician: Anthony Cabrera [Primary Care Provider] - Please follow up with your Primary Care Physician in: 3-5 days Please Follow Up With: Tim Israel DO When: 10 days
--- NOTE | 2018-12-13 09:44 | DS.PCM_ITS ---
Discharge Date and Diagnosis - Problem List Patient Problems: Active and Suspected Problems Right humeral fracture (Acute) Date of Admission: 12/11/18 Date of Discharge: 12/13/18 - Primary Discharge Diagnosis Active and Suspected Problems Right humeral fracture (Acute) - Secondary Discharge Diagnosis Chronic Problems Recurrent falls (Chronic) Dementia (Chronic) Hyperlipidemia (Chronic) Type II diabetes mellitus (Chronic) Hypertension (Chronic) Hospital Course and Treatment Imaging Results: CXR: IMPRESSION: Mild cardiomegaly. The lungs are clear. Comminuted nondisplaced fracture of the surgical neck of the proximal right humerus with extension to the greater tuberosity. R Humerus XR: IMPRESSION: Nondisplaced comminuted fracture of the surgical neck of the humerus with extension into the greater tuberosity. Operations: None Procedures: None Summary of Care Provided: Per HPI: The patient is a 78 year old F with past medical history of dementia, hypertension, hyperlipidemia, type II DM, who lives with her daughter at home. Her son and [id number] live next door. History was from the patient's daughter and [id number]. Patient had previously pressed her life alert button. The company called back by the life alert button was in the kitchen. Patient subsequently was found in the bedroom. Patient was found on the floor, unable to get up. She has history of recurrent falls according to the family. They are not able to tell and patient can remember if she had any symptoms prior to falling. Denied any recent illnesses or new medications. Denied any recent complaints. Vitals in the ED show temperature of 97.6F, heart rate was 65, blood pressure 175/62, respiratory rate of 18, SPO2 of 97% on room air. Patient is admitting blood work showed RBC count of 12.1, hemoglobin 11.0, platelet count 171, sodium 141, potassium 3.8, chloride 105, bicarbonate 29, BUN 32, creatinine 1.65, glucose 234. Chest x-ray showed mild cardiomegaly, comminuted nondisplaced fracture of the surgical neck of the proximal right humerus. X-ray of the humerus confirmed nondisplaced condylar fracture of the surgical neck with extension to the greater tuberosity. Hospital Course: 1. Acute right nondisplaced comminuted fracture of the proximal humerus status post fall -78-year-old female who fell at home and presented to the hospital with shoulder pain on the right. She was found to have a nondisplaced comminuted fracture of the proximal humerus and orthopedic surgery was consulted who stated that she was nonoperative and would need to remain in the sling. She will need to be seen as an outpatient in 10 days for further orthopedic follow- up. She underwent PT and OT evaluation here and was found to be about a max assist of 2 because she walks at home with a walker and she is unable to bear any weight on her right upper extremity. She will need to be [place] a [place] [facility] for further rehab. 2. Acute kidney injury/HTN/HLD-she is not in our computer system prior to this visit and on admission her initial creatinine was 1.65 with IV fluids improved to 1.44, unsure as to whether or not she has chronic kidney disease or if this is a new renal injury secondary to the fall. However may benefit from an outpatient BNP follow-up at the discretion of the facilities physician. At the moment we will continue with her home Norvasc and her home metoprolol. Ptosis which is related to the stress caused by the fracture she does not have any signs of infection. 3. Her other medical diagnoses were evaluated and her home medications were continued where appropriate Patient Problems: Active and Suspected Problems Right humeral fracture (Acute) Objective: General: Alert, Cooperative, No apparent distress, - - Oriented to person and place not time HEENT: Atraumatic, PERRLA, EOMI, Normocephalic Oral: Moist Mucosa Neck: Supple, No JVD, Trachea Midline Lungs: Clear to auscultation, Normal air movement, No rhonchi, No wheeze, No rales, Diminished Cardiovascular: Regular rate, Regular Rhythm, Normal S1, Normal S2, No murmurs Abdomen: Soft, Non Tender, Non-Distended, No Hepato-splenomegaly Extremities: No edema, Capillary Refill Less than 3 Seconds Skin: No rashes, No breakdown Musculoskeletal: Tenderness - Right shoulder Neurological: Neuro grossly intact, Sensory exam intact to light touch and pain Psych/Mental Status: Normal Affect, Appropriate - Physical Exam Vital Signs Temp Pulse Resp BP Pulse Ox 98.3 F 66 18 159/73 H 99 12/13/18 03:27 12/13/18 03:27 12/13/18 03:27 12/13/18 03:27 12/13/18 03:27 Oxygen Delivery Method Room Air Weight: 183 lb 13.848 oz Body Mass Index (BMI) 32.5 Intake and Output for Last 24 Hours 12/11/18 12/12/18 12/13/18 23:59 23:59 23:59 Intake Total 586 / 586 1440 / 1440 780 / 780 Output Total 200 / 200 675 / 675 Balance 386 / 386 765 / 765 780 / 780 Laboratory Tests Past 24 Hrs 12/13/18 05:28 WBC 11.1 H RBC 3.34 L Hgb 10.2 L Hct 33.2 L MCV 99.4 H MCH 30.5 MCHC 30.7 L RDW 14.6 RDW Differential 53.2 H Plt Count 151 MPV 13.2 H Immature Gran % (Auto) 0.300 Neut % (Auto) 71.8 H Lymph % (Auto) 15.8 L [place] % (Auto) 9.8 Eos % (Auto) 2.0 Baso % (Auto) 0.3 Absolute Neuts (auto) 7.9 H Absolute Lymphs (auto) 1.75 Total Counted Not Reportable POC Glucose 12/13/18 12/12/18 12/12/18 06:30 21:09 16:16 POC Glucose 195 H 187 H 188 H 12/12/18 11:17 POC Glucose 307 H Home Medications: Medications to take at Discharge Amlodipine [Norvasc] 5 mg PO DAILY 02/21/18 Aspirin [Aspirin, Baby] 81 mg PO DAILY@0800 02/21/18 Bupropion HCl [Wellbutrin Sr] 150 mg PO BID 02/21/18 Colchicine 0.6 mg PO BID 02/21/18 Gabapentin [Neurontin] 300 mg PO DAILY 02/21/18 Metoprolol Tartrate [Lopressor] 100 mg PO BID 02/21/18 Sertraline HCl [Zoloft] 75 mg PO DAILY 02/21/18 glyBURIDE [Micronase] 10 mg PO BID 02/21/18 Atorvastatin Calcium [Lipitor] 40 mg PO QHS 12/11/18 Cholecalciferol (VIT D3) [Vitamin D3] 1,000 unit PO DAILY 12/11/18 Donepezil HCl 5 mg PO DAILY 12/11/18 Ferrous Sulfate 325 mg PO DAILY 12/11/18 Hydrocodone/Acetaminophen [Hydrocodon-Acetaminophen 5-325] 1 tab PO Q8H PRN PRN 12/11/18 Linagliptin [Tradjenta] 5 mg PO DAILY 12/11/18 Memantine HCl [Memantine HCl ER] 28 mg PO DAILY 12/11/18 Multivitamin with Minerals [Multiple Vitamin] 1 tab PO DAILY 12/11/18 Omeprazole 40 mg PO DAILY 12/11/18 Pioglitazone [Actos] 30 mg PO DAILY 12/11/18 Rivastigmine 9.5mg Patch [Exelon 9.5MG/24HR PATCH] 1 patch TOPICAL DAILY 12/11/18 Primary Care Physician: Anthony Cabrera [Primary Care Provider] - Please follow up with your Primary Care Physician in: 3-5 days Please Follow Up With: Tim Israel DO When: 10 days Disposition: Intermediate facility Minutes spent on discharge:: 35 Patient Condition:: Stable Medical Necessity - Tobacco Use Smoking Status: Never smoker Tobacco Use: Non-smoker Meaningful Use Info Meaningful Use Diagnoses (Choose all that apply): None applicable Code Visit OBSV E&M: 15247 Observation care discharge
[2018-12-13] MEDS: Memantine Hydrochloride 10 MG Tablet PO (10:16)
[2018-12-13] MEDS: Ferrous Sulfate 325 MG Tablet PO (10:16)
[2018-12-13] MEDS: Sertraline 50 MG Tablet 75 MG PO (10:17)
[2018-12-13] MEDS: Aspirin 81 MG TAB.CHEW PO (10:18)
[2018-12-13] MEDS: Gabapentin 300 MG Capsule PO (10:18)
[2018-12-13] MEDS: LINAGLIPTIN 5 MG TABLET PO (10:18)
[2018-12-13 10:19] VITALS: BP 162/70; PULSE 65
[2018-12-13] MEDS: Pantoprazole Sodium 40 MG Tablet PO (10:19)
[2018-12-13] MEDS: buPROPion (SR) 150 MG Tablet.SA PO (10:19)
[2018-12-13] MEDS: Metoprolol Tartrate 100 MG Tablet PO (10:19)
[2018-12-13] MEDS: Multivitamins,Therapeutic Tablet 1 TABLET PO (10:20)
[2018-12-13] MEDS: amLODIPine 5 MG Tablet PO (10:20)
[2018-12-13] MEDS: Pioglitazone Hydrochloride 30 MG Tablet PO (10:20)
[2018-12-13] MEDS: Glucerna Shake 120 ML LIQUID PO ×2 (10:27→15:23)
[2018-12-13 10:28] VITALS: BP 162/70; PULSE 65; RESP 18; TEMP 36.9; O2SAT 98
--- NOTE | 2018-12-13 11:02 | CASEMGMT ---
Social Work Note SWEETIE spoke with Nadya at [facility] who states they have received authorization and pt is able to discharge today. Nadya requesting that transportation be set up after 2:00pm. Physician updated. SWEETIE faxed completed discharge paperwork to [facility] including transfer to extended care facility, signed medication list, and any scripts. Originals in SNF folder and copy on pt's chart. SWEETIE completed PAS/RR in HENS, originals on SNF folder and copy on pt's chart. SWEETIE placed a call to [facility] and set up transportation via cot for 4:00pm. Transportation form on SNF folder and copy on pt's chart. SWEETIE placed a call to pt's son Brijesh (HCPOA) and Daughter in Law Linda and updated both that pre-cert has been obtained, pt is being discharged today and transportation is arranged for 4:00pm. SWEETIE updated RN and alumni secretary of transportation time. Plan: Pt to discharge to [facility] skilled with [facility] transporting via cot at 4:00pm. Evelyn Sosa INSURANCE SPECIALIST, HEADHUNTER
[2018-12-13 12:31] LABS: Bedside Glucose 231 mg/dL (70-110)
[2018-12-13] MEDS: Heparin Injection (Vial) 5,000 UNIT/ML VIAL 5000 UNIT SC (15:23)
[2018-12-13] MEDS: Rivastigmine 9.5mg Patch 1 PATCH TRANSDERM. (15:34)
[2018-12-13 16:07] LABS: Bedside Glucose 204 mg/dL (70-110)
[2018-12-13 16:36] VITALS: BP 146/75; PULSE 67; RESP 16; TEMP 37.2; O2SAT 96
--- NOTE | 2018-12-13 17:47 | NURSING ---
Report given to Carmita at [facility] at this time.
[2018-12-14 13:05] LABS: Vitamin D 1,25-Dihydroxy 36.8 pg/mL (19.9-79.3)
== END 2018-12-13 17:35 | disposition skilled nursing facility (03) ==
LOC: ED 11:19 → MS3 18:41
PROVIDERS: Admitting Provider Internal Medicine; Emergency Provider Emergency Medicine; Family Provider Internal Medicine; PCP Internal Medicine; Visit Provider Family Medicine
DX: S42.214A Unspecified nondisplaced fracture of surgical neck of right humerus, initial encounter for closed fracture (principal); W06.XXXA Fall from bed, initial encounter; Y93.9 Activity, unspecified; Y99.9 Unspecified external cause status; F03.90 Unspecified dementia, unspecified severity, without behavioral disturbance, psychotic disturbance, mood disturbance, and anxiety; E78.5 Hyperlipidemia, unspecified; E11.9 Type 2 diabetes mellitus without complications; I10 Essential (primary) hypertension; R29.6 Repeated falls; F32.9 Major depressive disorder, single episode, unspecified; D50.9 Iron deficiency anemia, unspecified; N17.9 Acute kidney failure, unspecified; Y92.003 Bedroom of unspecified non-institutional (private) residence as the place of occurrence of the external cause; Z79.899 Other long term (current) drug therapy; Z79.82 Long term (current) use of aspirin; Z79.84 Long term (current) use of oral hypoglycemic drugs
CPT/HCPCS: 36415; 71045; 73060; 80048; 82652; 82962; 83036; 85025; 96361; 96372; 96374; 96375; 96376; 97110; 97162; 97166; 97530; 97802; 99218; 99285; J7030; A4216; G0378; J2405

== ENCOUNTER 2019-03-12 14:41 | Observation (INO) | payer MEDICARE, MEDICAID, SELFPAY ==
[2019-03-12 14:41] VITALS: BP 155/102; PULSE 63; RESP 18; TEMP 36.5; O2SAT 99; BMI 31.8
--- NOTE | 2019-03-12 16:00 | CT_ITS ---
STUDY: CT BRAIN WITHOUT CONTRAST REASON FOR EXAM: Female, 78 years old. Fall 2 days ago RADIATION DOSAGE (If Supplied By Facility): CTDIvol = ( 44.99 ) mGy, DLP = ( 779.24 ) mGycm TECHNIQUE: Transaxial CT imaging of the brain was performed without administration of intravenous contrast material. Individualized dose optimization techniques were used for this CT. COMPARISON: No relevant priors. FINDINGS: Normal soft tissue structures. Normal calvarium. There is mild cerebral atrophy with widening of the extra-axial spaces and ventricular dilatation. There are areas of decreased attenuation within the white matter tracts of the supratentorial brain, consistent with microvascular disease changes. Normal basal ganglia and thalami. Normal brainstem. Normal cerebellum. There is no intracranial hemorrhage. There are no findings of an acute ischemic infarction. There is mucosal thickening of the left maxillary sinus. CT/Brain/Head without Contrast IMPRESSION: Chronic involutional changes of the brain. Chronic left maxillary sinusitis. There is no intracranial hemorrhage or evidence of acute infarct. Electronically Signed: Alan Jernigan MD at 17:03 EDT , Service support ,
--- NOTE | 2019-03-12 16:00 | CT_ITS ---
STUDY: CT CERVICAL SPINE WITHOUT CONTRAST REASON FOR EXAM: Female, 78 years old. Frequent falls RADIATION DOSAGE (If Supplied By Facility): CTDIvol = ( 32.9 ) mGy, DLP = ( 688.08 ) mGycm TECHNIQUE: High resolution transaxial imaging was performed without contrast material. Sagittal and coronal images were reconstructed. Individualized dose optimization techniques were used for this CT. COMPARISON: None FINDINGS: Normal craniovertebral junction. Normal anterior atlantoaxial articulation. Normal odontoid process. There is reversal of the normal cervical lordosis. There is diffuse endplate spondylosis of the cervical vertebrae. C2-3: Disc spacing is preserved. There are hypertrophic degenerative changes of the right facet joint. There is no central canal stenosis or foraminal narrowing. C3-4: There are bilateral hypertrophic degenerative facet changes. There is severe foraminal narrowing on the left. There is no central canal stenosis. Disc spacing is within normal limits. C4-5: There are bilateral hypertrophic degenerative facet changes. There is severe foraminal narrowing on the right. There is no central canal stenosis. There is mild disc space narrowing. C5-6: There is severe disc space narrowing. There are hypertrophic facet changes on the right. There is mild bilateral foraminal narrowing. There is no central canal stenosis. C6-7: There is severe disc space narrowing. There are mild bilateral degenerative facet changes. There is mild foraminal narrowing on the right. There is no central canal stenosis. C7-T1: There are mild bilateral degenerative facet changes. There is no central canal stenosis or foraminal narrowing. Disc spacing is within normal limits. There is old severe compression deformity with biconcave contour of T3. Normal visualized soft tissue structures. CT/Spine Cervical without Contras IMPRESSION: Multilevel degenerative changes, as described above. Old compression deformity of T3. There is no evidence of acute fracture or subluxation. Electronically Signed: Alan Jernigan MD at 17:09 EDT , Service support ,
--- NOTE | 2019-03-12 16:01 | RAD_ITS ---
STUDY: X-RAY - RIGHT HUMERUS REASON FOR EXAM: Female, 78 years old. Frequent falls TECHNIQUE: 3 view(s) of the humerus. COMPARISON: Previous study of December 11, 2018 FINDINGS: There is an old healing impacted comminuted fracture of the right humeral head and neck. There is no evidence of acute fracture or dislocation. There is no demonstrated soft tissue abnormality. RAD/Humerus min 2 Views IMPRESSION: Old healing impacted comminuted fracture of the right femoral head and neck. There is no evidence of acute fracture or dislocation. Electronically Signed: Alan Jernigan MD at 17:10 EDT , Service support ,
--- NOTE | 2019-03-12 16:14 | ED.DCSUM_ITS ---
- ER Visit Summary Date of Service: 03/12/19 Chief Complaint: Frequent falls History of Present Illness: The patient is a 78 F with history of frequent falls. She reported been falling at home every 2 or 3 days. She is set to go to an ECF when she leaves the emergency room. Family states when they called PCP he wanted her to come in to have x-rays before going to the alf. Patient did break her right proximal humerus in November. This area continues to be intimately painful. Apparently her most recent fall involved striking the back of her head on the toilet. When sitting at rest patient denies any pain. They do advised that she gets off balance when she tries to ambulate and falls backward. Physical Examination: Blood pressure is 155/102, otherwise vitals normal. Patient sitting upright in bed no acute distress. Head neck examination was no obvious external sign of trauma. No C-spine tenderness. Heart is regular rate and rhythm. Lung sounds are clear. Chest wall is nontender. Abdomen is soft and nontender. Extremity examination reveals no focal tenderness. She has strong distal pulses. I can logroll both legs with no pain. Test Results: Chest x-ray reveals cardiomegaly. Right humerus x-ray shows an old healing impacted fracture of the right humerus. CT head shows chronic involutional changes. CT C-spine shows degenerative changes. There is an old compression fracture of T3. CBC was normal white count with hemoglobin 10.7. Chemistry studies reveal BUN 34 and creatinine 1.53. This does appear consistent with her prior values. Emergency Department Course and Treatment: I spoke with social work as I initially was told the patient was set to go to the [facility] after x-rays in the emergency room. They spoke with the [facility] and patient does not have admission paperwork or precertification done. Patient will be admitted to the hospital for observation status and placement will be arranged. Treatment Plan: [] Disposition: Admit Impression: Frequent falls This note was generated with [employer] technology dictation software. It may contain incorrect words, spelling, and punctuation that were not noted in review of the chart prior to signing ED Disposition - Plan for ED Patient: Referrals: Anthony Cabrera [Primary Care Provider] -
--- NOTE | 2019-03-12 16:45 | RAD_ITS ---
STUDY: X-RAY CHEST REASON FOR EXAM: Female, 78 years old. Frequent falls TECHNIQUE: AP and lateral views of the chest. COMPARISON: Previous study of December 11, 2018 FINDINGS: The lungs are clear and expanded. There is no demonstrated pleural abnormality. There is moderate cardiac enlargement. Normal mediastinum and ureil. Normal visualized pulmonary arteries. There are calcified plaques of the thoracic aorta with mild uncoiling noted. There are compression deformities of several of the thoracic vertebrae. An old healing fracture of the right humeral head and neck is again noted. There is no demonstrated abnormality of the visualized soft tissue structures of the upper abdomen. RAD/Chest PA and Lateral IMPRESSION: Moderate cardiomegaly. Calcified plaques of the thoracic aorta with uncoiling noted. Healing fracture of the right humeral head and neck. No acute cardiopulmonary disease process is seen. Electronically Signed: Alan Jernigan MD at 17:12 EDT , Service support ,
--- NOTE | 2019-03-12 17:05 | CM.ED ---
Social Work Emergency Department Received call from Dr. Murphy who reports the family has conveyed the [facility], that all is set up and just came to the ED under direction of PCP for medical clearance. This instructional writer called [facility] and asked licensing coordinator Tracie to be paged. Received call back. Per Tracie, the family did call in but no work has been done, such as orders/precert/PASARR screen, to have patient admitted. Per Tracie, the family asked if the facility accepts pending Medicaid, which the facility does not. Patient has [facility] Medicare, which will require precert and of which [facility] is not in-network. Tracie reports the family conveyed the patient has fallen 18 or 19 times in the last [address] Murphy and updated. Plan: Patient to be be transferred to acute unit for further evaluation and planning of discharge needs. Will need PT and OT evaluations to determine need for skilled therapy, will need precert, and to work with family on where patient be discharged. Social work to follow. -GOGO Zamora, RN TELEPHONE TRIAGE
[2019-03-12 17:36] LABS: Bedside Glucose 169 mg/dL (70-110)
[2019-03-12 17:38] LABS: Absolute Lymphocyte Count 1.73 X10^3/ul (0.83-4.51); Absolute Neutrophil Count 6.5 X10^3/uL (2.0-7.7); Basophil# 0.03 X10^3/uL; Basophil% 0.3 % (0-1); Eosinophil# 0.22 X10^3/uL; Eosinophils% 2.3 % (0-5); Hematocrit 34.9 % (37-47); Hemoglobin 10.7 g/dl (12.0-15.0); Lymphocyte # 1.73 X10^3/ul (4.0); Lymphocyte % 18.4 % (19-41); Mean Corp Hgb Conc 30.7 g/gl (32-36); Mean Corpuscular Hgb 29.1 pg (27.0-32.0); Mean Corpuscular Volume 94.8 fL (81-99); Mean Platelet Vol. 12.8 fl (6.2-12.0); Monocyte# 0.87 X10^3/uL; Monocyte% 9.2 % (0-10); Neutrophil # 6.54 X10^3/uL (2.7-7.7); Neutrophil % 69.5 % (47-70); Platelet Count 213 K/mm3 (150-450); RBC Distribution Width CV 14.7 % (11.6-14.6); RBC Distribution Width SD 50.4 fl (35.1-43.9); Red Blood Count 3.68 M/mm3 (4.2-5.4); White Blood Count 9.4 K/mm3 (4.4-11.0)
[2019-03-12 17:39] LABS: POSITIVE COUNT NO; POSITIVE DIFFERENTIAL NO; POSITIVE MORPHOLOGY NO
[2019-03-12 17:55] VITALS: BP 195/87; O2SAT 94
[2019-03-12 17:56] LABS: Anion Gap 5 (5-15); BUN 34 mg/dL (7-18); BUN/Creat Ratio 22.2 RATIO (10-20); Calcium,Total 9.5 mg/dL (8.5-10.1); Chloride 107 mmol/L (98-107); Creatinine, Serum 1.53 mg/dL (0.55-1.02); EST Glomerular Filtration Rate 35 mL/min (>60); Est Glom Filt Rate - Afr Amer 42 mL/min (>60); Estimated Creatinine Clearance 24.26 ml/min; Glucose 179 mg/dL (74-106); Potassium 3.9 mmol/L (3.5-5.1); Sodium Level 143 mmol/L (136-145)
[2019-03-12 19:38] VITALS: BMI 32.9
[2019-03-12 19:56] VITALS: BMI 33.0
[2019-03-12 20:01] VITALS: BP 197/86; PULSE 65; RESP 20; TEMP 37.1; O2SAT 95
--- NOTE | 2019-03-12 20:25 | PCM.HP.STD ---
Problem List (1) Debility Status: Chronic (2) Recurrent falls Status: Chronic History of Present Illness Date of Admission: 03/12/19 Chief Complaint: Recurrent falls, debility The patient is a 78 year old F who was seen in the emergency room at [facility] after being brought in by her family who she lives with due to a series of frequent falls at home, patient's daughter states that she has had 4 falls since last Tuesday, patient has had a history of dementia for about 5 years, review of systems was unobtainable from the patient due to her dementia-granddaughter was present and provided some medical information, the patient was able to provide some medical information but was a poor informant overall. Labs obtained in the emergency room were remarkable for creatinine of 1.53, BUN was 34, glucose was 179, hemoglobin was 10.7. Patient's white blood cell count was unremarkable, urinalysis was not obtained. Brain CT was unremarkable for any acute process, cervical spine CT was unremarkable except for multilevel degenerative changes and no compression deformity of T3. Humerus x-ray of the right humerus showed an old healing impacted comminuted fracture of the right femoral head and neck. Patient's family states they are unable to take care of the patient at this time and wished patient to be placed in a intermediate facility-patient does not disapprove of this. Patient will be placed and observation status on [facility] 3, family wants her to go to [facility] [place]. Past Medical History Past Medical History (Chronic Problems): Chronic Problems Recurrent falls (Chronic) Dementia (Chronic) Hyperlipidemia (Chronic) Type II diabetes mellitus (Chronic) Hypertension (Chronic) Debility (Chronic) Allergies allopurinol Allergy (Verified 03/12/19 14:44) Rash tetanus toxoid, adsorbed Adverse Reaction (Verified 03/12/19 14:44) Nausea Home Medications: Ambulatory Orders Medication Instructions Recorded Amlodipine [Norvasc] 5 mg PO DAILY 02/21/18 Aspirin [Aspirin, Baby] 81 mg PO DAILY@1300 02/21/18 Bupropion HCl [Wellbutrin Sr] 150 mg PO BID 02/21/18 Colchicine 0.6 mg PO BID 02/21/18 Gabapentin [Neurontin] 300 mg PO DAILY 02/21/18 Metoprolol Tartrate [Lopressor] 100 mg PO BID 02/21/18 Sertraline HCl [Zoloft] 50 mg PO DAILY 02/21/18 glyBURIDE [Micronase] 5 mg PO BID 02/21/18 Atorvastatin Calcium [Lipitor] 40 mg PO QHS 12/11/18 Cholecalciferol (VIT D3) [Vitamin 1,000 unit PO DAILY 12/11/18 D3] Ferrous Sulfate 325 mg PO DAILY 12/11/18 Linagliptin [Tradjenta] 5 mg PO DAILY 12/11/18 Memantine HCl [Memantine HCl ER] 28 mg PO DAILY 12/11/18 Multivitamin with Minerals 1 tab PO DAILY 12/11/18 [Multiple Vitamin] Omeprazole 40 mg PO DAILY 12/11/18 Pioglitazone [Actos] 30 mg PO DAILY 12/11/18 Rivastigmine 9.5mg Patch [Exelon 1 patch TOPICAL DAILY 12/11/18 9.5MG/24HR PATCH] Melatonin 10 mg PO DAILY 03/12/19 Surgical History: cataract, total hip arthroplasty, - - Right knee surgery Psychiatric History: Depression, - - Alzheimer's dementia AERIAL ERECTOR History: No pertinent AERIAL ERECTOR history Lives: With Family Smoking Status: Never smoker Tobacco Use: Non-smoker Alcohol: None Drugs: None - *Family History Maternal History Items: No pertinent history Paternal History Items: No pertinent history Review of Systems Comment: Review of systems was unobtainable due to patient's dementia, medical information was supplied by the patient's granddaughter who is here in the emergency room. VTE Information - Inpt Only VTE Present on Admission: No VTE Mechan Device Prophylaxis: None VTE Pharm Prophylaxis ordered?: Yes - Physical Exam General: Alert, Cooperative, No apparent distress, Well developed, Well nourished HEENT: Atraumatic, PERRLA, EOMI, Normocephalic Oral: Moist Mucosa Neck: Supple, No JVD, Negative Carotid Bruits, No Nuchal Rigidity, Trachea Midline, Thyroid Normal Size and Texture Lungs: Clear to auscultation, Normal air movement, No rhonchi, No wheeze, No rales Cardiovascular: Regular rate, Regular Rhythm, Normal S1, Normal S2, No murmurs, No Ectopic Activity, PMI Normal, No rub noted, No Gallop Abdomen: Bowel Sounds Present, Soft, Non Tender, Non-Distended, No hernias noted Extremities: No clubbing, No cyanosis, No edema, Capillary Refill Less than 3 Seconds Skin: No rashes, No breakdown Musculoskeletal: No Tenderness to Palpation of Joints or Extremities Neurological: Cranial nerves II-XII grossly intact, Neuro grossly intact, Sensory exam intact to light touch and pain Psych/Mental Status: Flat Affect, - - Patient responds appropriately to some questions, she is a poor informant Vital Signs Temp Pulse Resp BP Pulse Ox 98.7 F 65 20 H 197/86 H 95 03/12/19 20:01 03/12/19 20:01 03/12/19 20:01 03/12/19 20:01 03/12/19 20:01 Oxygen Delivery Method Room Air Weight: 84.414 kg Body Mass Index (BMI) 32.9 Finger Stick Blood Glucose 169 Laboratory Tests Past 24 Hrs 03/12/19 03/12/19 17:25 17:25 WBC 9.4 RBC 3.68 L Hgb 10.7 L Hct 34.9 L MCV 94.8 MCH 29.1 MCHC 30.7 L RDW 14.7 H RDW Differential 50.4 H Plt Count 213 MPV 12.8 H Immature Gran % (Auto) 0.300 Neut % (Auto) 69.5 Lymph % (Auto) 18.4 L [place] % (Auto) 9.2 Eos % (Auto) 2.3 Baso % (Auto) 0.3 Absolute Neuts (auto) 6.5 Absolute Lymphs (auto) 1.73 Total Counted Not Reportable Sodium 143 Potassium 3.9 Chloride 107 Carbon Dioxide 31.0 Anion Gap 5 BUN 34 H Creatinine 1.53 H Estim Creat Clear Calc 24.26 Est GFR (MDRD) Af Amer 42 L Est GFR (MDRD) Non-Af 35 L BUN/Creatinine Ratio 22.2 H Glucose 179 H Calcium 9.5 POC Glucose 03/12/19 17:20 POC Glucose 169 H Assessment/Plan All Active Problems Right humeral fracture (Resolved) #1 generalized debility secondary to multiple medical problems-Alzheimer's dementia, osteoarthritis, degenerative joint disease-patient will be placed and observation status on [facility] 3, she will be seen by PT and OT, insurance approval will need to be obtained for her to go to a intermediate facility ([facility]). #2 chronic kidney disease stage III secondary to type 2 diabetes-patient's creatinine is in the same range as previous creatinine levels #3 type 2 diabetes-blood sugars will be monitored #4 hypertension #5 Alzheimer's dementia without behavioral disturbances #6 hyperlipidemia Code Visit OBSV E&M: 38841 Initial observation care L3
--- NOTE | 2019-03-12 20:30 | HP.PCM_ITS ---
Problem List (1) Debility Status: Chronic (2) Recurrent falls Status: Chronic History of Present Illness Date of Admission: 03/12/19 Chief Complaint: Recurrent falls, debility The patient is a 78 year old F who was seen in the emergency room at [facility] after being brought in by her family who she lives with due to a series of frequent falls at home, patient's daughter states that she has had 4 falls since last Tuesday, patient has had a history of dementia for about 5 years, review of systems was unobtainable from the patient due to her dementia- granddaughter was present and provided some medical information, the patient was able to provide some medical information but was a poor informant overall. Labs obtained in the emergency room were remarkable for creatinine of 1.53, BUN was 34, glucose was 179, hemoglobin was 10.7. Patient's white blood cell count was unremarkable, urinalysis was not obtained. Brain CT was unremarkable for any acute process, cervical spine CT was unremarkable except for multilevel degenerative changes and no compression deformity of T3. Humerus x-ray of the right humerus showed an old healing impacted comminuted fracture of the right femoral head and neck. Patient's family states they are unable to take care of the patient at this time and wished patient to be placed in a custodial facility-patient does not disapprove of this. Patient will be placed and observation status on [facility], family wants her to go to [facility] in [place]. Past Medical History Past Medical History (Chronic Problems): Chronic Problems Recurrent falls (Chronic) Dementia (Chronic) Hyperlipidemia (Chronic) Type II diabetes mellitus (Chronic) Hypertension (Chronic) Debility (Chronic) Allergies allopurinol Allergy (Verified 03/12/19 14:44) Rash tetanus toxoid, adsorbed Adverse Reaction (Verified 03/12/19 14:44) Nausea Home Medications: Ambulatory Orders Medication Instructions Recorded Amlodipine [Norvasc] 5 mg PO DAILY 02/21/18 Aspirin [Aspirin, Baby] 81 mg PO DAILY@1300 02/21/18 Bupropion HCl [Wellbutrin Sr] 150 mg PO BID 02/21/18 Colchicine 0.6 mg PO BID 02/21/18 Gabapentin [Neurontin] 300 mg PO DAILY 02/21/18 Metoprolol Tartrate [Lopressor] 100 mg PO BID 02/21/18 Sertraline HCl [Zoloft] 50 mg PO DAILY 02/21/18 glyBURIDE [Micronase] 5 mg PO BID 02/21/18 Atorvastatin Calcium [Lipitor] 40 mg PO QHS 12/11/18 Cholecalciferol (VIT D3) [Vitamin 1,000 unit PO DAILY 12/11/18 D3] Ferrous Sulfate 325 mg PO DAILY 12/11/18 Linagliptin [Tradjenta] 5 mg PO DAILY 12/11/18 Memantine HCl [Memantine HCl ER] 28 mg PO DAILY 12/11/18 Multivitamin with Minerals 1 tab PO DAILY 12/11/18 [Multiple Vitamin] Omeprazole 40 mg PO DAILY 12/11/18 Pioglitazone [Actos] 30 mg PO DAILY 12/11/18 Rivastigmine 9.5mg Patch [Exelon 1 patch TOPICAL DAILY 12/11/18 9.5MG/24HR PATCH] Melatonin 10 mg PO DAILY 03/12/19 Surgical History: cataract, total hip arthroplasty, - - Right knee surgery Psychiatric History: Depression, - - Alzheimer's dementia [employer] History: No pertinent [employer] history Lives: With Family Smoking Status: Never smoker Tobacco Use: Non-smoker Alcohol: None Drugs: None - *Family History Maternal History Items: No pertinent history Paternal History Items: No pertinent history Review of Systems Comment: Review of systems was unobtainable due to patient's dementia, medical information was supplied by the patient's granddaughter who is here in the emergency room. VTE Information - Inpt Only VTE Present on Admission: No VTE Mechan Device Prophylaxis: None VTE Pharm Prophylaxis ordered?: Yes - Physical Exam General: Alert, Cooperative, No apparent distress, Well developed, Well nourished HEENT: Atraumatic, PERRLA, EOMI, Normocephalic Oral: Moist Mucosa Neck: Supple, No JVD, Negative Carotid Bruits, No Nuchal Rigidity, Trachea Midline, Thyroid Normal Size and Texture Lungs: Clear to auscultation, Normal air movement, No rhonchi, No wheeze, No rales Cardiovascular: Regular rate, Regular Rhythm, Normal S1, Normal S2, No murmurs, No Ectopic Activity, PMI Normal, No rub noted, No Gallop Abdomen: Bowel Sounds Present, Soft, Non Tender, Non-Distended, No hernias noted Extremities: No clubbing, No cyanosis, No edema, Capillary Refill Less than 3 Seconds Skin: No rashes, No breakdown Musculoskeletal: No Tenderness to Palpation of Joints or Extremities Neurological: Cranial nerves II-XII grossly intact, Neuro grossly intact, Sensory exam intact to light touch and pain Psych/Mental Status: Flat Affect, - - Patient responds appropriately to some questions, she is a poor informant Vital Signs Temp Pulse Resp BP Pulse Ox 98.7 F 65 20 H 197/86 H 95 03/12/19 20:01 03/12/19 20:01 03/12/19 20:01 03/12/19 20:01 03/12/19 20:01 Oxygen Delivery Method Room Air Weight: 84.414 kg Body Mass Index (BMI) 32.9 Finger Stick Blood Glucose 169 Laboratory Tests Past 24 Hrs 03/12/19 03/12/19 17:25 17:25 WBC 9.4 RBC 3.68 L Hgb 10.7 L Hct 34.9 L MCV 94.8 MCH 29.1 MCHC 30.7 L RDW 14.7 H RDW Differential 50.4 H Plt Count 213 MPV 12.8 H Immature Gran % (Auto) 0.300 Neut % (Auto) 69.5 Lymph % (Auto) 18.4 L [place] % (Auto) 9.2 Eos % (Auto) 2.3 Baso % (Auto) 0.3 Absolute Neuts (auto) 6.5 Absolute Lymphs (auto) 1.73 Total Counted Not Reportable Sodium 143 Potassium 3.9 Chloride 107 Carbon Dioxide 31.0 Anion Gap 5 BUN 34 H Creatinine 1.53 H Estim Creat Clear Calc 24.26 Est GFR (MDRD) Af Amer 42 L Est GFR (MDRD) Non-Af 35 L BUN/Creatinine Ratio 22.2 H Glucose 179 H Calcium 9.5 POC Glucose 03/12/19 17:20 POC Glucose 169 H Assessment/Plan All Active Problems Right humeral fracture (Resolved) #1 generalized debility secondary to multiple medical problems-Alzheimer's dementia, osteoarthritis, degenerative joint disease-patient will be placed and observation status on [facility], she will be seen by PT and OT, insurance approval will need to be obtained for her to go to a custodial facility ([facility]). #2 chronic kidney disease stage III secondary to type 2 diabetes-patient's creatinine is in the same range as previous creatinine levels #3 type 2 diabetes-blood sugars will be monitored #4 hypertension #5 Alzheimer's dementia without behavioral disturbances #6 hyperlipidemia Code Visit OBSV E&M: 07595 Initial observation care L3
[2019-03-12 22:45] VITALS: BP 180/84; PULSE 76; RESP 18; TEMP 37.1; O2SAT 93
[2019-03-12 22:50] VITALS: BP 180/84; PULSE 76
[2019-03-12] MEDS: Atorvastatin Calcium 40 MG Tablet PO (22:50)
[2019-03-12] MEDS: Metoprolol Tartrate 100 MG Tablet PO (22:50)
[2019-03-12] MEDS: buPROPion (SR) 150 MG Tablet.SA PO (22:50)
[2019-03-12] MEDS: Memantine Hydrochloride 10 MG Tablet PO (22:51)
[2019-03-12] MEDS: Nystatin Powder 15gm Bottle 1 APPLIC TOPICAL (22:55)
[2019-03-12] MEDS: Acetaminophen 325 MG Tablet 650 MG PO (23:08)
[2019-03-12 23:29] VITALS: PULSE 76; RESP 18; O2SAT 93
[2019-03-12 23:56] LABS: Bedside Glucose 142 mg/dL (70-110)
[2019-03-13] VITALS (7 sets, daily range): BP systolic 146–171; BP diastolic 59–87; PULSE 64–73; RESP 16–18; TEMP 36.7–37.3; O2SAT 92–97
[2019-03-13 07:02] LABS: Thyroid Stim Hormone (TSH) 1.07 uIU/mL (0.358-3.74)
[2019-03-13 07:05] LABS: Bedside Glucose 57 mg/dL (70-110)
--- NOTE | 2019-03-13 07:17 | PCM.PN.HOSP ---
Subjective: Patient is an 78-year-old lady with multiple comorbidities including Alzheimer's dementia, generalized osteoarthritis degenerative joint disease brought to the ER by the family on account of frequent falls. Imaging studies obtained in the emergency department demonstrated Old healing impacted comminuted fracture of the right femoral head and neck. Objective: GENERAL: Frail looking HEENT: Atraumatic; EYES; Anicteric, Normal Conjunctiva NECK; supple, normal thyroid, RESPIRATORY: Diminished to auscultation bilaterally, CARDIOVASCULAR: Regular S1 S2, GI: soft, non-tender, normoactive bowel sounds, : No Renal angle tenderness; EXTREMITIES: No edema, no clubbing, no cyanosis. NEURO: Awake; no lateralizing signs. SKIN: No Rash PSYCH; Normal affect Vitals/I&O's: Vital Signs Temp Pulse Resp BP Pulse Ox 99.1 F 64 18 163/66 H 97 03/13/19 04:45 03/13/19 04:45 03/13/19 04:45 03/13/19 04:45 03/13/19 04:45 Oxygen Flow Rate (L/min) 2 Oxygen Delivery Method Nasal Cannula Weight: 84.414 kg Body Mass Index (BMI) 32.9 Finger Stick Blood Glucose 169 Intake and Output for Last 24 Hours 03/11/19 03/12/19 03/13/19 23:59 23:59 23:59 Intake Total 520 / 520 Balance 520 / 520 Laboratory Results 03/12/19 17:20: POC Glucose 169 H 03/12/19 17:25: WBC 9.4, RBC 3.68 L, Hgb 10.7 L, Hct 34.9 L, MCV 94.8, MCH 29.1, MCHC 30.7 L, RDW 14.7 H, RDW Differential 50.4 H, Plt Count 213, MPV 12.8 H, Immature Gran % (Auto) 0.300, Neut % (Auto) 69.5, Lymph % (Auto) 18.4 L, [place] % (Auto) 9.2, Eos % (Auto) 2.3, Baso % (Auto) 0.3, Absolute Neuts (auto) 6.5, Absolute Lymphs (auto) 1.73, Total Counted Not Reportable 03/12/19 17:25: Sodium 143, Potassium 3.9, Chloride 107, Carbon Dioxide 31.0, Anion Gap 5, BUN 34 H, Creatinine 1.53 H, Estim Creat Clear Calc 24.26, Est GFR (MDRD) Af Amer 42 L, Est GFR (MDRD) Non-Af 35 L, BUN/Creatinine Ratio 22.2 H, Glucose 179 H, Calcium 9.5 03/12/19 22:47: POC Glucose 142 H 03/13/19 05:55: TSH 1.07 03/13/19 07:01: POC Glucose 57 L Current Medications Acetaminophen (Tylenol) 650 mg PO Q6H PRN PRN PRN Reason: Mild Pain (1-3)/Temp > 100.7 F Last Admin: 03/12/19 23:08 Dose: 650 mg Amlodipine Besylate (Norvasc) 5 mg PO DAILY [facility] Aspirin (Aspirin, Baby) 81 mg PO DAILY@1300 [facility] Atorvastatin Calcium (Lipitor) 40 mg PO QHS [facility] Last Admin: 03/12/19 22:50 Dose: 40 mg Bupropion HCl (Wellbutrin Sr (150mg Tablets)) 150 mg PO BID [facility] Last Admin: 03/12/19 22:50 Dose: 150 mg Dextrose (D50w Syringe) 0 gm IV X1 PRN; Protocol PRN Reason: Hypoglycemia Enoxaparin Sodium (Lovenox) 30 mg SC DAILY@1000 [facility] Ferrous Sulfate (Ferrous Sulfate) 325 mg PO DAILY@0800 [facility] Gabapentin (Neurontin) 300 mg PO DAILY [facility] Glucagon () 1 mg IM .X1 PRN PRN Reason: Hypoglycemia Glyburide (Micronase) 5 mg PO BIDCM [facility] Insulin Human Lispro (Humalog Kwikpen (Bkc)) 0 unit SQ ACHS [facility]; Protocol Last Admin: 03/13/19 07:01 Dose: Not Given Linagliptin (Tradjenta) 5 mg PO DAILY [facility] Memantine (Namenda) 10 mg PO BID [facility] Last Admin: 03/12/19 22:51 Dose: 10 mg Metoprolol Tartrate (Lopressor (Beta Fabien)) 100 mg PO BID [facility] Last Admin: 03/12/19 22:50 Dose: 100 mg Nystatin (Mycostatin Powder) 1 applic TOPICAL BID [facility]; Protocol Last Admin: 03/12/19 22:55 Dose: 1 applicatio Pantoprazole Sodium (Protonix) 40 mg PO DAILY [facility] Pioglitazone HCl (Actos) 30 mg PO DAILY [facility] Rivastigmine (Exelon 9.5mg/24hr Patch) 1 patch TRANSDERM. DAILY [facility] Sertraline HCl (Zoloft) 50 mg PO DAILY [facility] Sodium Chloride () 5 - 15 ml IV UD PRN PRN Reason: SALINE FLUSH Medical Necessity - Tobacco Use Smoking Status: Never smoker Tobacco Use: Non-smoker Assessment/Plan All Active Problems Right humeral fracture (Resolved) Patient is an 78-year-old lady with multiple comorbidities including Alzheimer's dementia, generalized osteoarthritis degenerative joint disease brought to the ER by the family on account of frequent falls. Imaging studies obtained in the emergency department demonstrated Old healing impacted comminuted fracture of the right femoral head and neck. 1. Physical debility with multiple falls in the patient with multiple comorbidities admitted to a regular nursing floor requested for PT/OT evaluation and treatment and social insurance analyst assist with discharge planning possibly to detention facility 2. Diabetes mellitus type 2 with complications including diabetic nephropathy; did continue with patient home regimen in addition to Accu-Cheks before meals and at bedtime with sliding scale coverage 3. Hypertension-blood pressure controlled, home medications continued with dose adjustment as needed 4. Dyslipidemia-patient is on statin therapy, continued at home dose 5. Alzheimer's dementia without behavioral agitation and is on Namenda as well as Rivastigmine; continued 6. Chronic kidney disease stage III kidney function at baseline 7. DVT prophylaxis: On enoxaparin dose adjusted for kidney function Active Medications Acetaminophen (Tylenol) 650 mg PO Q6H PRN PRN PRN Reason: Mild Pain (1-3)/Temp > 100.7 F Last Admin: 03/12/19 23:08 Dose: 650 mg Amlodipine Besylate (Norvasc) 5 mg PO DAILY [facility] Last Admin: 03/13/19 08:41 Dose: 5 mg Aspirin (Aspirin, Baby) 81 mg PO DAILY@1300 [facility] Atorvastatin Calcium (Lipitor) 40 mg PO QHS [facility] Last Admin: 03/12/19 22:50 Dose: 40 mg Bupropion HCl (Wellbutrin Sr (150mg Tablets)) 150 mg PO BID [facility] Last Admin: 03/13/19 08:40 Dose: 150 mg Dextrose (D50w Syringe) 0 gm IV X1 PRN; Protocol PRN Reason: Hypoglycemia Last Admin: 03/13/19 07:21 Dose: 12.5 gm Enoxaparin Sodium (Lovenox) 30 mg SC DAILY@1000 [facility] Last Admin: 03/13/19 09:59 Dose: 30 mg Ferrous Sulfate (Ferrous Sulfate) 325 mg PO DAILY@0800 [facility] Last Admin: 03/13/19 08:41 Dose: 325 mg Gabapentin (Neurontin) 300 mg PO DAILY [facility] Last Admin: 03/13/19 08:40 Dose: 300 mg Glucagon () 1 mg IM .X1 PRN PRN Reason: Hypoglycemia [facility] Last Admin: 03/13/19 08:41 Dose: 5 mg Insulin Human Lispro (Humalog Kwikpen (Bkc)) 0 unit SQ ACHS [facility]; Protocol Last Admin: 03/13/19 07:01 Dose: Not Given Linagliptin (Tradjenta) 5 mg PO DAILY [facility] Last Admin: 03/13/19 09:55 Dose: 5 mg Memantine (Namenda) 10 mg PO BID [facility] Last Admin: 03/13/19 08:42 Dose: 10 mg Metoprolol Tartrate (Lopressor (Beta Fabien)) 100 mg PO BID [facility] Last Admin: 03/13/19 08:40 Dose: 100 mg Nystatin (Mycostatin Powder) 1 applic TOPICAL BID [facility]; Protocol Last Admin: 03/13/19 09:52 Dose: 1 applicatio Pantoprazole Sodium (Protonix) 40 mg PO DAILY [facility] Last Admin: 03/13/19 08:42 Dose: 40 mg Pioglitazone HCl (Actos) 30 mg PO DAILY [facility] Last Admin: 03/13/19 09:52 Dose: 30 mg Rivastigmine (Exelon 9.5mg/24hr Patch) 1 patch TRANSDERM. DAILY [facility] Last Admin: 03/13/19 08:41 Dose: 1 patch Sertraline HCl (Zoloft) 50 mg PO DAILY [facility] Last Admin: 03/13/19 08:40 Dose: 50 mg Sodium Chloride () 5 - 15 ml IV UD PRN PRN Reason: SALINE FLUSH Last Admin: 03/13/19 07:22 Dose: 10 ml Clinical Impression(s) from Imaging Studies Brain CT 03/12/19 16:00 IMPRESSION: Chronic involutional changes of the brain. Chronic left maxillary sinusitis. There is no intracranial hemorrhage or evidence of acute infarct. Electronically Signed: Alan Jernigan MD at 17:03 EDT , Service support , Cervical Spine CT 03/12/19 16:00 IMPRESSION: Multilevel degenerative changes, as described above. Old compression deformity of T3. There is no evidence of acute fracture or subluxation. Electronically Signed: Alan Jernigan MD at 17:09 EDT , Service support , Humerus X-Ray 03/12/19 16:01 IMPRESSION: Old healing impacted comminuted fracture of the right femoral head and neck. There is no evidence of acute fracture or dislocation. Electronically Signed: Alan Jeringan MD at 17:10 EDT , Service support , Chest X-Ray 03/12/19 16:45 IMPRESSION: Moderate cardiomegaly. Calcified plaques of the thoracic aorta with uncoiling noted. Healing fracture of the right humeral head and neck. No acute cardiopulmonary disease process is seen. Electronically Signed: Alan Jernigan MD at 17:12 EDT , Service support , Code Visit OBSV E&M: 74095 Subsequent observation care L3
[2019-03-13] MEDS: Dextrose 50%-Water 25 GM/50 ML DISP.SYRIN IV (07:21)
[2019-03-13] MEDS: 0.9% NaCl Peripheral Flush Adult/Peds IV (07:22)
--- NOTE | 2019-03-13 07:31 | PN_ITS ---
Subjective: Patient is an 78-year-old lady with multiple comorbidities including Alzheimer's dementia, generalized osteoarthritis degenerative joint disease brought to the ER by the family on account of frequent falls. Imaging studies obtained in the emergency department demonstrated Old healing impacted comminuted fracture of the right femoral head and neck. Objective: GENERAL: Frail looking HEENT: Atraumatic; EYES; Anicteric, Normal Conjunctiva NECK; supple, normal thyroid, RESPIRATORY: Diminished to auscultation bilaterally, CARDIOVASCULAR: Regular S1 S2, GI: soft, non-tender, normoactive bowel sounds, : No Renal angle tenderness; EXTREMITIES: No edema, no clubbing, no cyanosis. NEURO: Awake; no lateralizing signs. SKIN: No Rash PSYCH; Normal affect Vitals/I&O's: Vital Signs Temp Pulse Resp BP Pulse Ox 99.1 F 64 18 163/66 H 97 03/13/19 04:45 03/13/19 04:45 03/13/19 04:45 03/13/19 04:45 03/13/19 04:45 Oxygen Flow Rate (L/min) 2 Oxygen Delivery Method Nasal Cannula Weight: 84.414 kg Body Mass Index (BMI) 32.9 Finger Stick Blood Glucose 169 Intake and Output for Last 24 Hours 03/11/19 03/12/19 03/13/19 23:59 23:59 23:59 Intake Total 520 / 520 Balance 520 / 520 Laboratory Results 03/12/19 17:20: POC Glucose 169 H 03/12/19 17:25: WBC 9.4, RBC 3.68 L, Hgb 10.7 L, Hct 34.9 L, MCV 94.8, MCH 29.1, MCHC 30.7 L, RDW 14.7 H, RDW Differential 50.4 H, Plt Count 213, MPV 12.8 H, Im mature Gran % (Auto) 0.300, Neut % (Auto) 69.5, Lymph % (Auto) 18.4 L, [place] % (Auto) 9.2, Eos % (Auto) 2.3, Baso % (Auto) 0.3, Absolute Neuts (auto) 6.5, Absolute Lymphs (auto) 1.73, Total Counted Not Reportable 03/12/19 17:25: Sodium 143, Potassium 3.9, Chloride 107, Carbon Dioxide 31.0, Anion Gap 5, BUN 34 H, Creatinine 1.53 H, Estim Creat Clear Calc 24.26, Est GFR (MDRD) Af Amer 42 L, Est GFR (MDRD) Non-Af 35 L, BUN/Creatinine Ratio 22.2 H, Glucose 179 H, Calcium 9.5 03/12/19 22:47: POC Glucose 142 H 03/13/19 05:55: TSH 1.07 03/13/19 07:01: POC Glucose 57 L Current Medications Acetaminophen (Tylenol) 650 mg PO Q6H PRN PRN PRN Reason: Mild Pain (1-3)/Temp > 100.7 F Last Admin: 03/12/19 23:08 Dose: 650 mg Amlodipine Besylate (Norvasc) 5 mg PO DAILY [facility] Aspirin (Aspirin, Baby) 81 mg PO DAILY@1300 [facility] Atorvastatin Calcium (Lipitor) 40 mg PO QHS [facility] Last Admin: 03/12/19 22:50 Dose: 40 mg Bupropion HCl (Wellbutrin Sr (150mg Tablets)) 150 mg PO BID [facility] Last Admin: 03/12/19 22:50 Dose: 150 mg Dextrose (D50w Syringe) 0 gm IV X1 PRN; Protocol PRN Reason: Hypoglycemia Enoxaparin Sodium (Lovenox) 30 mg SC DAILY@1000 [facility] Ferrous Sulfate (Ferrous Sulfate) 325 mg PO DAILY@0800 [facility] Gabapentin (Neurontin) 300 mg PO DAILY [facility] Glucagon () 1 mg IM .X1 PRN PRN Reason: Hypoglycemia Glyburide (Micronase) 5 mg PO BIDCM [facility] Insulin Human Lispro (Humalog Kwikpen (Bkc)) 0 unit SQ ACHS [facility]; Protocol Last Admin: 03/13/19 07:01 Dose: Not Given Linagliptin (Tradjenta) 5 mg PO DAILY [facility] Memantine (Namenda) 10 mg PO BID [facility] Last Admin: 03/12/19 22:51 Dose: 10 mg Metoprolol Tartrate (Lopressor (Beta Fabien)) 100 mg PO BID [facility] Last Admin: 03/12/19 22:50 Dose: 100 mg Nystatin (Mycostatin Powder) 1 applic TOPICAL BID [facility]; Protocol Last Admin: 03/12/19 22:55 Dose: 1 applicatio Pantoprazole Sodium (Protonix) 40 mg PO DAILY [facility] Pioglitazone HCl (Actos) 30 mg PO DAILY [facility] Rivastigmine (Exelon 9.5mg/24hr Patch) 1 patch TRANSDERM. DAILY [facility] Sertraline HCl (Zoloft) 50 mg PO DAILY [facility] Sodium Chloride () 5 - 15 ml IV UD PRN PRN Reason: SALINE FLUSH Medical Necessity - Tobacco Use Smoking Status: Never smoker Tobacco Use: Non-smoker Assessment/Plan All Active Problems Right humeral fracture (Resolved) Patient is an 78-year-old lady with multiple comorbidities including Alzheimer's dementia, generalized osteoarthritis degenerative joint disease brought to the ER by the family on account of frequent falls. Imaging studies obtained in the emergency department demonstrated Old healing impacted comminuted fracture of the right femoral head and neck. 1. Physical debility with multiple falls in the patient with multiple comorbidities admitted to a regular nursing floor requested for PT/OT evaluation and treatment and social worker school assist with discharge planning possibly to intermediate facility 2. Diabetes mellitus type 2 with complications including diabetic nephropathy; did continue with patient home regimen in addition to Accu-Cheks before meals and at bedtime with sliding scale coverage 3. Hypertension-blood pressure controlled, home medications continued with dose adjustment as needed 4. Dyslipidemia-patient is on statin therapy, continued at home dose 5. Alzheimer's dementia without behavioral agitation and is on Namenda as well as Rivastigmine; continued 6. Chronic kidney disease stage III kidney function at baseline 7. DVT prophylaxis: On enoxaparin dose adjusted for kidney function Active Medications Acetaminophen (Tylenol) 650 mg PO Q6H PRN PRN PRN Reason: Mild Pain (1-3)/Temp > 100.7 F Last Admin: 03/12/19 23:08 Dose: 650 mg Amlodipine Besylate (Norvasc) 5 mg PO DAILY [facility] Last Admin: 03/13/19 08:41 Dose: 5 mg Aspirin (Aspirin, Baby) 81 mg PO DAILY@1300 [facility] Atorvastatin Calcium (Lipitor) 40 mg PO QHS [facility] Last Admin: 03/12/19 22:50 Dose: 40 mg Bupropion HCl (Wellbutrin Sr (150mg Tablets)) 150 mg PO BID [facility] Last Admin: 03/13/19 08:40 Dose: 150 mg Dextrose (D50w Syringe) 0 gm IV X1 PRN; Protocol PRN Reason: Hypoglycemia Last Admin: 03/13/19 07:21 Dose: 12.5 gm Enoxaparin Sodium (Lovenox) 30 mg SC DAILY@1000 [facility] Last Admin: 03/13/19 09:59 Dose: 30 mg Ferrous Sulfate (Ferrous Sulfate) 325 mg PO DAILY@0800 [facility] Last Admin: 03/13/19 08:41 Dose: 325 mg Gabapentin (Neurontin) 300 mg PO DAILY [facility] Last Admin: 03/13/19 08:40 Dose: 300 mg Glucagon () 1 mg IM .X1 PRN PRN Reason: Hypoglycemia [facility]) [facility] Last Admin: 03/13/19 08:41 Dose: 5 mg Insulin Human Lispro (Humalog Kwikpen (Bkc)) 0 unit SQ ACHS [facility]; Protocol Last Admin: 03/13/19 07:01 Dose: Not Given Linagliptin (Tradjenta) 5 mg PO DAILY [facility] Last Admin: 03/13/19 09:55 Dose: 5 mg Memantine (Namenda) 10 mg PO BID [facility] Last Admin: 03/13/19 08:42 Dose: 10 mg Metoprolol Tartrate (Lopressor (Beta Fabien)) 100 mg PO BID [facility] Last Admin: 03/13/19 08:40 Dose: 100 mg Nystatin (Mycostatin Powder) 1 applic TOPICAL BID [facility]; Protocol Last Admin: 03/13/19 09:52 Dose: 1 applicatio Pantoprazole Sodium (Protonix) 40 mg PO DAILY [facility] Last Admin: 03/13/19 08:42 Dose: 40 mg Pioglitazone HCl (Actos) 30 mg PO DAILY [facility] Last Admin: 03/13/19 09:52 Dose: 30 mg Rivastigmine (Exelon 9.5mg/24hr Patch) 1 patch TRANSDERM. DAILY [facility] Last Admin: 03/13/19 08:41 Dose: 1 patch Sertraline HCl (Zoloft) 50 mg PO DAILY [facility] Last Admin: 03/13/19 08:40 Dose: 50 mg Sodium Chloride () 5 - 15 ml IV UD PRN PRN Reason: SALINE FLUSH Last Admin: 03/13/19 07:22 Dose: 10 ml Clinical Impression(s) from Imaging Studies Brain CT 03/12/19 16:00 IMPRESSION: Chronic involutional changes of the brain. Chronic left maxillary sinusitis. There is no intracranial hemorrhage or evidence of acute infarct. Electronically Signed: Alan Jernigan MD at 17:03 EDT , Service support , Cervical Spine CT 03/12/19 16:00 IMPRESSION: Multilevel degenerative changes, as described above. Old compression deformity of T3. There is no evidence of acute fracture or subluxation. Electronically Signed: Alan Jernigan MD at 17:09 EDT , Service support , Humerus X-Ray 03/12/19 16:01 IMPRESSION: Old healing impacted comminuted fracture of the right femoral head and neck. There is no evidence of acute fracture or dislocation. Electronically Signed: Alan Jernigan MD at 17:10 EDT , Service support , Chest X-Ray 03/12/19 16:45 IMPRESSION: Moderate cardiomegaly. Calcified plaques of the thoracic aorta with uncoiling noted. Healing fracture of the right humeral head and neck. No acute cardiopulmonary disease process is seen. Electronically Signed: Alan Jernigan MD at 17:12 EDT , Service support , Code Visit OBSV E&M: 92690 Subsequent observation care L3
[2019-03-13 07:41] LABS: Bedside Glucose 145 mg/dL (70-110)
[2019-03-13] MEDS: Gabapentin 300 MG Capsule PO (08:40)
[2019-03-13] MEDS: Metoprolol Tartrate 100 MG Tablet PO ×2 (08:40→22:53)
[2019-03-13] MEDS: buPROPion (SR) 150 MG Tablet.SA PO ×2 (08:40→22:53)
[2019-03-13] MEDS: Sertraline 50 MG Tablet PO (08:40)
[2019-03-13] MEDS: Rivastigmine 9.5mg Patch 1 PATCH TRANSDERM. (08:41)
[2019-03-13] MEDS: amLODIPine 5 MG Tablet PO (08:41)
[2019-03-13] MEDS: Ferrous Sulfate 325 MG Tablet PO (08:41)
[2019-03-13] MEDS: Memantine Hydrochloride 10 MG Tablet PO ×2 (08:42→22:53)
[2019-03-13] MEDS: Pantoprazole Sodium 40 MG Tablet PO (08:42)
--- NOTE | 2019-03-13 09:13 | CASEMGMT ---
Addendum entered by Evelyn Sosa 03/13/19 09:41: SW received call from pt's daughter in law Linda. Linda states pt will need placed at [facility]. SWEETIE informed Linda that [facility] is not in network with pt's insurance. Linda confirms that she had spoke with Brittni at [facility] and states that they are able to try for a one time contract but will need referral sent. SWEETIE explained that a one time contract can be attempted but not likely to be approved. SWEETIE informed Linda that if one time contract is not approved, pt can go to [facility] but it would be private pay. Linda states she is aware of this and states that pt would have to pay privately for 30 days at [facility] and then try to apply for Medicaid. SWEETIE explained referral process, and that [facility] will have to be agreeable to try a one time contract. Linda states understanding, provided number [phone]. SWEETIE faxed referral to [facility]. Original Note: Social Work Note Per H+P, pt's family wants pt placed at [facility]. Pt went to [facility] last time pt was at [facility]. SWEETIE reviewed pt's insurance which is [employer]. [facility] is not in network with [employer]. SWEETIE placed a call to Brittni at [facility], left message regarding referral. SWEETIE waiting for call back from Brittni at [facility]. Plan: SNF pending acceptance and pre-cert Evelyn Sosa AMBULANCE ASSISTANT, INSURANCE APPLICATION INVESTIGATOR
[2019-03-13 09:28] LABS: Anion Gap 7 (5-15); BUN 32 mg/dL (7-18); BUN/Creat Ratio 22.5 RATIO (10-20); Calcium,Total 8.8 mg/dL (8.5-10.1); Chloride 110 mmol/L (98-107); Creatinine, Serum 1.42 mg/dL (0.55-1.02); EST Glomerular Filtration Rate 38 mL/min (>60); Est Glom Filt Rate - Afr Amer 46 mL/min (>60); Estimated Creatinine Clearance 26.14 ml/min; Glucose 54 mg/dL (74-106); Magnesium 1.6 mg/dL (1.6-2.6); Potassium 3.5 mmol/L (3.5-5.1); Sodium Level 147 mmol/L (136-145)
[2019-03-13] MEDS: Nystatin Powder 15gm Bottle 1 APPLIC TOPICAL ×2 (09:52→22:53)
[2019-03-13] MEDS: Pioglitazone Hydrochloride 30 MG Tablet PO (09:52)
[2019-03-13] MEDS: LINAGLIPTIN 5 MG TABLET PO (09:55)
--- NOTE | 2019-03-13 09:55 | CASEMGMT ---
Addendum entered by Evelyn Sosa 03/13/19 14:01: SWEETIE faxed PT/OT to [facility] Original Note: Social Work Note SW spoke with Brittni at [facility]. Brittni confirms that she has talked with pt's family and states that she will need referral, will need to officially have to accept pt, and will need to see about one time contract for [facility]. Brittni confirms that pt's family had mentioned that they are able to pay privately for a month and apply for Medicaid in the event that one time contract is not approved. SWEETIE informed Brittni that this worker faxed referral, and is waiting for PT/OT to evaluations and will fax PT/OT once available. Brittni states understanding. Plan: [facility] pending acceptance and one time contract with [facility]. If one time contract is not approved, pt's family is willing to pay privately initially at [facility] then apply for Medicaid. Evelyn Sosa ELECTRONIC WARFARE SPECIALIST, ADVERTISING LAYOUT WORKER
[2019-03-13] MEDS: Enoxaparin 30 MG/0.3 ML Syringe SC (09:59)
[2019-03-13 11:01] LABS: Bedside Glucose 183 mg/dL (70-110)
[2019-03-13 11:05] LABS: Bedside Glucose 109 mg/dL (70-110)
[2019-03-13] MEDS: Aspirin 81 MG TAB.CHEW PO (12:00)
[2019-03-13] MEDS: Insulin Lispro 100 UNIT/ML INSULN.PEN SQ (12:00)
--- NOTE | 2019-03-13 16:09 | CASEMGMT ---
Social Work Note SW placed call to Brittni at [facility], left message inquiring if she is able to accept pt and if she will try for one time contract with [employer]. SWEETIE waiting for call back, SWEETIE is leaving for the day. SW to follow up with Brittni at [facility] tomorrow. Plan: [facility] pending acceptance and one time contract with [employer] Evelyn Sosa MARKETING PRODUCTION MANAGER, MATTRESS STRIPPER
[2019-03-13 16:36] LABS: Bedside Glucose 124 mg/dL (70-110)
[2019-03-13] MEDS: Acetaminophen 325 MG Tablet 650 MG PO (17:49)
[2019-03-13 22:51] LABS: Bedside Glucose 118 mg/dL (70-110)
[2019-03-13] MEDS: Atorvastatin Calcium 40 MG Tablet PO (22:53)
[2019-03-14 05:59] LABS: Anion Gap 6 (5-15); BUN 33 mg/dL (7-18); BUN/Creat Ratio 21.2 RATIO (10-20); Calcium,Total 8.7 mg/dL (8.5-10.1); Chloride 111 mmol/L (98-107); Creatinine, Serum 1.56 mg/dL (0.55-1.02); EST Glomerular Filtration Rate 34 mL/min (>60); Est Glom Filt Rate - Afr Amer 41 mL/min (>60); Estimated Creatinine Clearance 23.79 ml/min; Glucose 138 mg/dL (74-106); Potassium 3.8 mmol/L (3.5-5.1); Sodium Level 147 mmol/L (136-145)
[2019-03-14 06:28] VITALS: BP 155/54; PULSE 72; RESP 16; TEMP 36.6; O2SAT 96
[2019-03-14 06:40] LABS: Bedside Glucose 148 mg/dL (70-110)
[2019-03-14 09:01] VITALS: BP 163/72; PULSE 65; RESP 20; TEMP 36.7; O2SAT 95
[2019-03-14 09:04] VITALS: PULSE 65
[2019-03-14] MEDS: Pantoprazole Sodium 40 MG Tablet PO (09:04)
[2019-03-14] MEDS: Pioglitazone Hydrochloride 30 MG Tablet PO (09:04)
[2019-03-14] MEDS: Metoprolol Tartrate 100 MG Tablet PO (09:04)
[2019-03-14] MEDS: buPROPion (SR) 150 MG Tablet.SA PO (09:05)
[2019-03-14] MEDS: Sertraline 50 MG Tablet PO (09:05)
[2019-03-14] MEDS: Memantine Hydrochloride 10 MG Tablet PO (09:05)
[2019-03-14] MEDS: amLODIPine 5 MG Tablet PO (09:05)
[2019-03-14] MEDS: Nystatin Powder 15gm Bottle 1 APPLIC TOPICAL (09:05)
[2019-03-14] MEDS: Ferrous Sulfate 325 MG Tablet PO (09:05)
[2019-03-14] MEDS: Gabapentin 300 MG Capsule PO (09:05)
[2019-03-14] MEDS: Rivastigmine 9.5mg Patch 1 PATCH TRANSDERM. (09:06)
[2019-03-14] MEDS: Enoxaparin 30 MG/0.3 ML Syringe SC (09:13)
[2019-03-14] MEDS: Glucerna Shake 120 ML LIQUID PO (09:13)
[2019-03-14] MEDS: LINAGLIPTIN 5 MG TABLET PO (09:13)
--- NOTE | 2019-03-14 09:27 | PCM.TXEXTCAR ---
- Diet 03/12/19 19:34 Diet: Calorie Controlled How many daily calories?: 1800 calorie - Routine Orders/Code Status O2 Frequency: PRN Keep PO Greater than or Equal to (%): 90 Code Status: Full Code - Wound(s) R lateral knee Wound Type: Abrasion - Therapies Physical Therapy: Eval and Treat Occupational Therapy: Eval and Treat - Allergies/Procedures Done in Hospital Allergies/Adverse Reactions: Allergies allopurinol Allergy (Verified 03/12/19 14:44) Rash tetanus toxoid, adsorbed Adverse Reaction (Verified 03/12/19 14:44) Nausea - Type of Care/Length of Stay Estimated LOS: Convalescent Care Less Than 30 days Type of Care Needed: Skilled Rehab Potential: Fair Prognosis: Fair - Additional Orders/Day of Discharge Day of Discharge: 03/14/19 - Follow Up Care Primary Care Physician: Anthony Cabrera [Primary Care Provider] - Please follow up with your Primary Care Physician in: in 2-4 weeks
--- NOTE | 2019-03-14 09:31 | DS.PCM_ITS ---
Discharge Date and Diagnosis Date of Admission: 03/12/19 Date of Discharge: 03/14/19 - Primary Discharge Diagnosis Physical debility - Secondary Discharge Diagnosis Chronic Problems Recurrent falls (Chronic) Dementia (Chronic) Hyperlipidemia (Chronic) Type II diabetes mellitus (Chronic) Hypertension (Chronic) Debility (Chronic) Hospital Course and Treatment Operations: None Summary of Care Provided: Patient is an 78-year-old lady with multiple comorbidities including Alzheimer's dementia, generalized osteoarthritis degenerative joint disease brought to the ER by the family on account of frequent falls. Imaging studies obtained in the emergency department demonstrated Old healing impacted comminuted fracture of the right humeral head and neck. 1. Physical debility with multiple falls in the patient with multiple comorbidities admitted to a regular nursing floor requested for PT/OT evaluation and treatment and social organization professor to assist with discharge planning [facility]. She was discharged to SNF once insurance precertification was obtained. 2. Diabetes mellitus type 2 with complications including diabetic nephropathy; did continue with patient home regimen in addition to Accu-Cheks before meals and at bedtime with sliding scale coverage 3. Hypertension-blood pressure controlled, home medications continued with dose adjustment as needed 4. Dyslipidemia-patient is on statin therapy, continued at home dose 5. Alzheimer's dementia without behavioral agitation and is on Namenda as well as Rivastigmine; continued 6. Chronic kidney disease stage III kidney function at baseline 7. DVT prophylaxis: On enoxaparin dose adjusted for kidney function 8. Old healing impacted comminuted fracture of the right humeral head and neck. - Physical Exam General: Alert HEENT: Atraumatic Oral: Moist Mucosa Neck: No JVD Lungs: Diminished Neurological: Neuro grossly intact Psych/Mental Status: Normal Affect Vital Signs Temp Pulse Resp BP Pulse Ox 98.0 F 65 20 H 163/72 H 95 03/14/19 09:01 03/14/19 09:04 03/14/19 09:01 03/14/19 09:01 03/14/19 09:01 Oxygen Flow Rate (L/min) 2 Oxygen Delivery Method Room Air Weight: 84.414 kg Body Mass Index (BMI) 32.9 Finger Stick Blood Glucose 169 Intake and Output for Last 24 Hours 03/12/19 03/13/19 03/14/19 23:59 23:59 23:59 Intake Total 520 / 520 460 / 460 Output Total 300 / 300 Balance 520 / 520 160 / 160 Laboratory Tests Past 24 Hrs 03/14/19 05:30 Sodium 147 H Potassium 3.8 Chloride 111 H Carbon Dioxide 30.0 Anion Gap 6 BUN 33 H Creatinine 1.56 H Estim Creat Clear Calc 23.79 Est GFR (MDRD) Af Amer 41 L Est GFR (MDRD) Non-Af 34 L BUN/Creatinine Ratio 21.2 H Glucose 138 H Calcium 8.7 POC Glucose 03/14/19 03/13/19 03/13/19 06:36 22:34 16:23 POC Glucose 148 H 118 H 124 H 03/13/19 03/13/19 10:54 08:39 POC Glucose 183 H 109 Discharge Diet: No Restrictions Discharge Activity: Return to Normal Activity Home Medications: Medications to take at Discharge Amlodipine [Norvasc] 5 mg PO DAILY 02/21/18 Aspirin [Aspirin, Baby] 81 mg PO DAILY@1300 02/21/18 Bupropion HCl [Wellbutrin Sr] 150 mg PO BID 02/21/18 Colchicine 0.6 mg PO BID 02/21/18 Gabapentin [Neurontin] 300 mg PO DAILY 02/21/18 Metoprolol Tartrate [Lopressor] 100 mg PO BID 02/21/18 Sertraline HCl [Zoloft] 50 mg PO DAILY 02/21/18 glyBURIDE [Micronase] 5 mg PO BID 02/21/18 Atorvastatin Calcium [Lipitor] 40 mg PO QHS 12/11/18 Cholecalciferol (VIT D3) [Vitamin D3] 1,000 unit PO DAILY 12/11/18 Ferrous Sulfate 325 mg PO DAILY 12/11/18 Linagliptin [Tradjenta] 5 mg PO DAILY 12/11/18 Memantine HCl [Memantine HCl ER] 28 mg PO DAILY 12/11/18 Multivitamin with Minerals [Multiple Vitamin] 1 tab PO DAILY 12/11/18 Omeprazole 40 mg PO DAILY 12/11/18 Pioglitazone [Actos] 30 mg PO DAILY 12/11/18 Rivastigmine 9.5mg Patch [Exelon 9.5MG/24HR PATCH] 1 patch TOPICAL DAILY 12/11/18 Melatonin 10 mg PO DAILY 03/12/19 Acetaminophen [Tylenol Tablet] 650 mg PO Q6H PRN PRN tablet 03/14/19 Insulin Lispro [Humalog KwikPen] See Protocol SQ ACHS insuln.pen 03/14/19 Primary Care Physician: Anthony Cabrera [Primary Care Provider] - Please follow up with your Primary Care Physician in: in 2-4 weeks Disposition: Retirement facility Minutes spent on discharge:: 35 Patient Condition:: Stable Medical Necessity - Tobacco Use Smoking Status: Never smoker Tobacco Use: Non-smoker Meaningful Use Info Meaningful Use Diagnoses (Choose all that apply): None applicable Code Visit OBSV E&M: 84803 Observation care discharge
--- NOTE | 2019-03-14 09:50 | CASEMGMT ---
AVALOS form completed via telephone with daughter in law Linda ScottEddie. SALINA Mckeon voiced understanding and telephone consent given at this time. Original AVALOS form filed in chart.
--- NOTE | 2019-03-14 10:47 | CASEMGMT ---
Social Work Note SWEETIE spoke with Brittni at [facility]. Per Brittni she is still working on one time contract with [facility] but states it is not likely she will get it approved. Brittni states though that pt is still able to discharge to [facility] today since pt's family is willing to pay privately for SNF. Physician updated. SWEETIE faxed completed discharge paperwork to [facility] including transfer to extended care facility, signed medication list and any scripts. Original in SNF folder and copy on pt's chart. SWEETIE completed PAS/RR in [facility]. Original in SNF folder and copy on pt's chart. SWEETIE arranged transportation via cot through [facility] for 11:30am. Transportation form on SNF folder and copy on pt's chart. SWEETIE placed a call to pt's daughter in law Linda and pt's HCPOA, pt's son Arnol, and updated them both on discharge to [facility] today and transportation time. SWEETEI updated Brittni at [facility] and RN on transportation time. Plan: Pt to discharge to [facility] skilled today with [facility] transporting via cot at 11:30am Evelyn Sosa MANAGER SECONDARY, IN STORE DEMONSTRATOR
--- NOTE | 2019-03-14 12:28 | NURSING ---
called report to [facility] at this time. call back number provided.
== END 2019-03-14 11:40 | disposition skilled nursing facility (03) ==
LOC: ED 18:42 → MS3 18:58
PROVIDERS: Admitting Provider Internal Medicine; Emergency Provider Emergency Medicine; Family Provider Internal Medicine; PCP Internal Medicine; Referring Provider Internal Medicine; Visit Provider Internal Medicine
DX: R53.81 Other malaise (principal); G30.9 Alzheimer's disease, unspecified; F02.80 Dementia in other diseases classified elsewhere, unspecified severity, without behavioral disturbance, psychotic disturbance, mood disturbance, and anxiety; R29.6 Repeated falls; E78.5 Hyperlipidemia, unspecified; M15.9 Polyosteoarthritis, unspecified; Z79.899 Other long term (current) drug therapy; Z79.82 Long term (current) use of aspirin; F32.9 Major depressive disorder, single episode, unspecified; E11.22 Type 2 diabetes mellitus with diabetic chronic kidney disease; N18.3 Chronic kidney disease, stage 3 (moderate); I12.9 Hypertensive chronic kidney disease with stage 1 through stage 4 chronic kidney disease, or unspecified chronic kidney disease
CPT/HCPCS: 36415; 70450; 71046; 72125; 73060; 80048; 82962; 83735; 84443; 85025; 96372; 96374; 97163; 97166; 97530; 99218; 99285; A4216; G0378

== ENCOUNTER 2019-06-01 23:23 | Emergency (ER) | payer MEDICARE, MEDICAID, SELFPAY ==
[2019-06-01 23:25] VITALS: BP 180/97; PULSE 65; RESP 16; TEMP 36.7; O2SAT 98; BMI 33.0
--- NOTE | 2019-06-01 23:32 | CT_ITS ---
STUDY: CT BRAIN WITHOUT CONTRAST REASON FOR EXAM: Female, 79 years old. Patient fell RADIATION DOSAGE (If Supplied By Facility): CTDIvol = ( 44.99 ) mGy, DLP = ( 779.24 ) mGycm TECHNIQUE: Transaxial CT imaging of the brain was performed without administration of intravenous contrast material. Individualized dose optimization techniques were used for this CT. COMPARISON: No relevant priors. FINDINGS: There is a 7 x 7 x 2 cm scalp hematoma in the left occipitoparietal region with no demonstration of an adjacent calvarial fracture. A small 1.8 x 1.7 cm mild contusion in the right occipital area. There is mild generalized brain atrophy demonstrated by prominence of the cortical sulci, basal cisterns and ventricles. There is no acute infarction and no intra or extra-axial tumor mass. Nonspecific microangiopathic white matter changes in both centrum semiovales. Both orbits are normal. There are chronic inflammatory changes in the left maxillary sinus. The mastoid air cells are normal. CT/Brain/Head without Contrast IMPRESSION: A 7 x 7 x 2 cm scalp hematoma in the left occipitoparietal region with no adjacent calvarial fracture. A small 1.8 x 1.7 cm area of mild contusion in the right occipital Electronically Signed: James Davison MD at 0:18 EDT Tel , Service support ,
--- NOTE | 2019-06-01 23:33 | CT_ITS ---
STUDY: CT CERVICAL SPINE WITHOUT CONTRAST REASON FOR EXAM: Female, 79 years old. Patient fell RADIATION DOSAGE (If Supplied By Facility): CTDIvol = ( 22.81 ) mGy, DLP = ( 471.37 ) mGycm TECHNIQUE: High resolution transaxial imaging was performed without contrast material. Sagittal and coronal images were reconstructed. Individualized dose optimization techniques were used for this CT. COMPARISON: None FINDINGS: There is straightening of the cervical spine most likely secondary to neck muscle spasm. There are no acute fractures or dislocations. There are degenerative changes at C5-C6 and C6-C7. 2The central canal is clear. The craniovertebral junction is normal. The tectorial membrane is intact.. CT/Spine Cervical without Contras IMPRESSION: Straightening of the cervical spine most likely secondary to muscle spasm. No acute fractures. Degenerative changes at C5-C6 and C6-C7 Electronically Signed: James Davison MD at 0:22 EDT Tel , Service support ,
--- NOTE | 2019-06-01 23:34 | ED.VIS.GEN ---
History of Present Illness Chief Complaint: Fall Narrative: Patient had a fall at the retirement. She does not remember what happened. She was walking unassisted and had a fall. She struck the back of her head on the floor. No loss of consciousness per patient. She stated she has some very mild soreness to the back of her head and slightly in her neck. Denies any other injury. She has a history of frequent falls. She was seen earlier this year and had a right humeral fracture from a fall. That is when she went to the retirement initially. Otherwise she has no complaints. Current severity is mild. She is on aspirin no other blood thinners. - Past Medical History (1) Debility Status: Chronic (2) Dementia Status: Chronic (3) Hyperlipidemia Status: Chronic (4) Hypertension Status: Chronic (5) Recurrent falls Status: Chronic (6) Type II diabetes mellitus Status: Chronic (7) Right humeral fracture Status: Resolved Past Medical History - Allergies and Home Meds Allergies/Adverse Reactions: Allergies allopurinol Allergy (Verified 06/01/19 23:24) Rash tetanus toxoid, adsorbed Adverse Reaction (Verified 06/01/19 23:24) Nausea Primary Care Physician: Madi Velasco MD [Primary Care Provider] - Prior records reviewed: Yes Past Medical History: - - Reviewed Surgical History: cataract, total hip arthroplasty, - - Right knee surgery Lives: [facility] Smoking Status: Never smoker Alcohol: None Drugs: None - Family History Maternal Family History: Reports: No pertinent history Paternal Family History: Reports: No pertinent history Review of Systems General: Denies: Chills, Fever, Sweats Eyes: Denies: Visual changes - bilaterally, Diplopia ENT: Denies: Rhinorrhea, Sore throat Cardiovascular: Denies: Chest pain, Palpitations Respiratory: Denies: Dyspnea, Cough, Dyspnea on exertion Gastrointestinal: Denies: Abdominal pain, Nausea, Vomiting, Diarrhea, Melena, Hematochezia Genitourinary: Denies: Dysuria, Hematuria, Frequency Musculoskeletal: Denies: Back pain, Extremity Pain Skin: Denies: Rash, Wounds Neurological: Reports: Headache. Denies: Weakness, Numbness Physical Exam Vital Signs/Narrative: Vital Signs Temp Pulse Resp BP Pulse Ox 06/01/19 23:25 98.1 F 65 16 180/97 H 98 General: Well nourished, Well developed, No Acute Distress Head: Normocephalic, Trauma - Small goose egg 3 x 4 cm to the back of her occipital.. Negative for: Atraumatic Eyes: Perrl, EOMI ENT: Moist mucous membranes, No rhinorrhea Neck: Supple, Nontender, - - Mild diffuse soreness of her neck. Normal range of motion. No bony step-off or deformity or contusion Cardiovascular: Regular rate, Regular rhythm, No murmurs Respiratory: No distress, CTA bilaterally, Chest nontender Abdomen: Soft, Nontender, Nondistended, Normal bowel sounds Back: Nontender, Normal Inspection Extremities: Nontender, No edema Skin: Normal color, No rash Neurological: Alert, Oriented x3, Cranial nerves II-XII grossly intact, Normal Strength, Normal Sensation Psychological: Normal affect, Normal Mood Diagnostic/Tx/Re-eval - Medical Decision Making Patient stated there is no other injuries. She has frequent falls due to off balance. Do not think she needs lab work. CT head neck obtained. Patient given ice pack and Tylenol. CT head and neck were negative. Patient can be discharged back to the retirement. Lab work came back shows mild chronic renal insufficiency otherwise nothing acute. Repeat blood pressures 150 systolic will be deferred. Given a second dose of hydralazine during her stay ED Disposition - Plan for ED Patient: Diagnosis: Scalp contusion, Brain contusion
[2019-06-01] MEDS: Acetaminophen 325 MG Tablet 650 MG PO (23:39)
[2019-06-02] VITALS (7 sets, daily range): BP systolic 154–185; BP diastolic 68–93; PULSE 60–77; RESP 14–15; O2SAT 95–99
[2019-06-02] MEDS: hydrALAZINE 20 MG/ML Vial 10 MG IV ×2 (00:44→01:17)
--- NOTE | 2019-06-02 00:56 | ED.RN ---
CALLED [facility] TO INFORM [facility] THAT PT IS BEING TRANSFERRED, REPORT GIVEN TO NURSE BURNETT.
[2019-06-02 01:02] LABS: Prothrombin Time (Protime)PT. 12.9 SECONDS (11.7-14.9)
[2019-06-02 01:03] LABS: Anion Gap 6 (5-15); BUN 44 mg/dL (7-18); BUN/Creat Ratio 24.7 RATIO (10-20); Calcium,Total 9.5 mg/dL (8.5-10.1); Chloride 109 mmol/L (98-107); Creatinine, Serum 1.78 mg/dL (0.55-1.02); EST Glomerular Filtration Rate 29 mL/min (>60); Est Glom Filt Rate - Afr Amer 35 mL/min (>60); Glucose 120 mg/dL (74-106); Partial Thromboplast Time 23.7 Seconds (24.1-36.2); Potassium 4.4 mmol/L (3.5-5.1); Sodium Level 142 mmol/L (136-145)
--- NOTE | 2019-06-02 01:05 | ED.RN ---
REPORT CALLED TO LINDSAY CAMP AT [facility].
[2019-06-02 01:20] LABS: Absolute Lymphocyte Count 1.94 X10^3/uL (0.83-4.51); Absolute Neutrophil Count 7.7 X10^3/uL (2.0-7.7); Basophil# 0.08 X10^3/uL; Basophil% 0.7 % (0-1); Eosinophils% 3.6 % (0-5); Hematocrit 37.7 % (37-47); Hemoglobin 11.7 g/dL (12.0-15.0); Lymphocyte # 1.94 X10^3/ul (4.0); Lymphocyte % 17.3 % (19-41); Mean Corpuscular Hgb 29.6 pg (27.0-32.0); Mean Corpuscular Volume 95.4 fL (81-99); Mean Platelet Vol. 13.8 fl (6.2-12.0); Monocyte# 1.04 X10^3/uL; Monocyte% 9.3 % (0-10); NRBC Flagged by Analyzer 0 % (0-5); Neutrophil # 7.67 X10^3/uL (2.7-7.7); Neutrophil % 68.5 % (47-70); Platelet Count 170 K/mm3 (150-450); RBC Distribution Width CV 14.1 % (11.6-14.6); RBC Distribution Width SD 49.8 fl (35.1-43.9); Red Blood Count 3.95 M/mm3 (4.2-5.4); White Blood Count 11.2 K/mm3 (4.4-11.0)
--- NOTE | 2019-06-02 01:28 | ED.RN ---
[facility] IN ED.
== END 2019-06-02 01:35 | disposition short-term general hospital (02) ==
PROVIDERS: Emergency Provider Emergency Medicine; Family Provider Family Medicine; PCP Family Medicine
DX: S00.03XA Contusion of scalp, initial encounter (principal); W19.XXXA Unspecified fall, initial encounter; Y92.129 Unspecified place in nursing home as the place of occurrence of the external cause; Y93.01 Activity, walking, marching and hiking; E11.9 Type 2 diabetes mellitus without complications; E78.5 Hyperlipidemia, unspecified; I10 Essential (primary) hypertension; F03.90 Unspecified dementia, unspecified severity, without behavioral disturbance, psychotic disturbance, mood disturbance, and anxiety; Z79.82 Long term (current) use of aspirin
CPT/HCPCS: 70450; 72125; 80048; 85025; 85610; 85730; 96372; 96374; 99285; A4216